=== PATIENT | female | born 1985 | race Caucasian/White ===

== ENCOUNTER 2019-01-11 17:03 | Inpatient (IN) | payer OTHER ==
[2019-01-11 17:53] VITALS: BMI 29.9
--- NOTE | 2019-01-11 20:50 | HP ---
CIWA Score - Admission Criteria OASAS Guidelines: Admission for Medically Managed Detox: Requires at least one of the followin. CIWA greater than 12 2. Seizures within the past 24 hours 3. Delirium tremens within the past 24 hours 4. Hallucinations within the past 24 hours 5. Acute intervention needed for co occurring medical disorder 6. Acute intervention needed for co occurring psychiatric disorder 7. Severe withdrawal that cannot be handled at a lower level of care (continued vomiting, continued diarrhea, abnormal vital signs) requiring intravenous medication and/or fluids 8. Admission ROS S - HPI Chief Complaint: rehab Allergies/Adverse Reactions: Allergies Allergy/AdvReac Type Severity Reaction Status Date / Time penicillin G Allergy Verified 01/11/19 19:52 History of Present Illness: Patient is a 33 yo female with hx of IV heroin, nicotine and alcohol dependence is here seeking detox. Reports was discharged from the residential facility [facility] Nov 2018 d/t relapsing and using heroin and alcohol. Patient is currently linked to [facility] [phone] MMTP 90 mg, last medicate today, dose pending verification. PMHX: seizures d/o last seizure 04/02/18), asthma, bipolar, anxiety . Denies suicidal / homicidal ideation. Exam Limitations: No Limitations - Ebola screening Have you traveled outside of the country in the last 21 days: No (N) Have you had contact with anyone from an Ebola affected area: No Have you been sick,other than usual withdrawal symptoms: No Do you have a fever: No - Review of Systems Constitutional: Changes in sleep, Other (weight gain 20 lbs in past month) EENT: reports: No Symptoms Reported Respiratory: reports: No Symptoms reported Cardiac: reports: No Symptoms Reported GI: reports: No Symptoms Reported : reports: No Symptoms Reported Musculoskeletal: reports: No Symptoms Reported Integumentary: reports: No Symptoms Reported Neuro: reports: See HPI Endocrine: reports: Increased Thirst Hematology: reports: No Symptoms Reported Psychiatric: reports: Orientated x3, Anxious Other Systems: Reviewed and Negative Patient History - Patient Medical History Hx Anemia: No Hx Asthma: Yes Hx Chronic Obstructive Pulmonary Disease (COPD): No Hx Cancer: No Hx Cardiac Disorders: No Hx Congestive Heart Failure: No Hx Hypertension: No Hx Hypercholesterolemia: No Hx Pacemaker: No HX Cerebrovascular Accident: No Hx Seizures: No Hx Dementia: No Hx Diabetes: No Hx Gastrointestinal Disorders: No Hx Liver Disease: Yes (Hep C resolved ) Hx Genitourinary Disorders: No Hx Sexually Transmitted Disorders: No Hx Renal Disease (ESRD): No Hx Thyroid Disease: No Hx Human Immunodeficiency Virus (HIV): No Hx Hepatitis C: No Hx Depression: Yes Hx Suicide Attempt: No Hx Bipolar Disorder: Yes Hx Schizophrenia: No - Patient Surgical History Past Surgical History: Yes Hx Section: Yes ( x2 ) - PPD History Previous Implant?: No Documented Results: Negative w/o proof PPD to be Administered?: Yes - Reproductive History Patient is a Female of Child Bearing Age (11 -55 yrs old): Yes (abormal periods , no period for over a year ) - Smoking Cessation Smoking history: Current every day smoker Have you smoked in the past 12 months: Yes Aproximately how many cigarettes per day: 20 Hx Chewing Tobacco Use: No Initiated information on smoking cessation: Yes 'Breaking Loose' booklet given: 01/11/19 - Substance & Tx. History Hx Alcohol Use: Yes Hx Substance Use: Yes Substance Use Type: Alcohol, Cocaine Hx Substance Use Treatment: Yes ([facility] d/c november 2017) - Substances Abused alcohol Route: Oral Frequency: 3-6 times per week Amount used: 5-6 shot liquor + 2 x 24 oz Age of first use: 15 Date of Last Use: 01/10/19 heroin Route: inhaltion / injection Frequency: Daily Amount used: 1 - 2 bundle Age of first use: 28 Date of Last Use: 01/07/19 Family Disease History - Family Disease History Family History: Denies Admission Physical Exam [facility] - Vital Signs Vital Signs: Vital Signs - 24 hr 01/11/19 17:52 Temperature 97.7 F Pulse Rate 83 Respiratory 18 Rate Blood Pressure 150/70 - Physical General Appearance: Yes: Appropriately Dressed, Obese, Anxious HEENTM: Yes: EOMI, Hearing grossly Normal, Normal ENT Inspection, Normocephalic , Normal Voice, XU, Pharynx Normal, Tm's normal Respiratory: Yes: Chest Non-Tender, Lungs Clear, Normal Breath Sounds, No Respiratory Distress, No Accessory Muscle Use Neck: Yes: Within Normal Limits Breast: Yes: Breast Exam Deferred Cardiology: Yes: Regular Rhythm, Regular Rate Abdominal: Yes: Normal Bowel Sounds, Non Tender, Soft, Protuberent Genitourinary: Yes: Within Normal Limits Back: Yes: Normal Inspection Musculoskeletal: Yes: full range of Motion, Gait Steady, Pelvis Stable Extremities: Yes: Normal Capillary Refill, Normal Inspection, Normal Range of Motion, Non-Tender Neurological: Yes: administrative receptionist II-XII NML intact, Fully Oriented, Alert, Motor Strength 5/5, Depressed Affect Integumentary: Yes: Normal Color, Warm, Track Aldridge (bilateral anticubital fossa , no infection present) Lymphatic: Yes: Within Normal Limits - Diagnostic (1) Opioid dependence on agonist therapy Current Visit: Yes Status: Acute (2) Alcohol dependence Current Visit: Yes Status: Acute (3) Nicotine dependence Current Visit: Yes Status: Acute (4) Seizure disorder Current Visit: Yes Status: Chronic Comment: on karsten (5) Asthma Current Visit: Yes Status: Chronic Qualifiers: Asthma severity: mild Asthma persistence: unspecified Asthma complication type: unspecified Qualified Code(s): J45.909 - Unspecified asthma , uncomplicated BHS Breath Alcohol Content Breath Alcohol Content: 0 Urine Pregancy Test - Result Urine Test Results: Negative- NO Line Present Urine Drug Screen - Results Drug Screen Negative: No Urine Drug Screen Results: OPI-Opiates, MTD-Methadone, FEN-Fentanyl Inpatient Rehab Admission - Rehab Decision to Admit Inpatient rehab admission?: Yes - Initial Determination Are CD services needed?: Yes Free of communicable disease: Yes Not in need of hospitalization: Yes - Rehab Admission Criteria Previous failed treatment: Yes Poor recovery environment: Yes Comorbidities: Yes Lacks judgement: Yes Patient is meeting Inpatient Rehab admission criteria:: Yes
[2019-01-11] MEDS ORDERED: LOPERAMIDE HCL 2 MG CAPSULE PO PRN (21:02)
[2019-01-11] MEDS ORDERED: P-EPHED 60MG/TRIPROLIDI 2.5MG TABLET PO PRN (21:02)
[2019-01-11] MEDS ORDERED: ACETAMINOPHEN 325 MG TABLET (FP) PO PRN (21:02)
[2019-01-11] MEDS ORDERED: guaiFENesin/D-METHORPHAN HB 10 ML UNIT-DOSE CUPS PO PRN (21:02)
[2019-01-11] MEDS ORDERED: MAGNESIUM CITRATE 300 ML BOTTLE PO PRN (21:02)
[2019-01-11] MEDS ORDERED: IBUPROFEN 400 MG TABLET (FP) PO PRN (21:02)
[2019-01-11] MEDS ORDERED: MENTHOL/PHENOL 1 EACH UD MM PRN (21:02)
[2019-01-11] MEDS ORDERED: cloNIDine HCL 0.1 MG TABLET PO ONE (21:10)
[2019-01-11 23:19] LABS: URINE APPEARANCE CLEAR; URINE BILIRUBIN NEGATIVE (<2.0 mg/dL); URINE COLOR YELLOW; URINE GLUCOSE (UA) NEGATIVE (NEGATIVE); URINE KETONE NEGATIVE (NEGATIVE); URINE LEUK ESTERASE 1+ (NEGATIVE); URINE NITRITE NEGATIVE (NEGATIVE); URINE PROTEIN NEGATIVE (NEGATIVE)
[2019-01-11 23:26] LABS: EPI CELLS RARE /HPF (FEW); URINE MUCUS FEW
[2019-01-12] MEDS: THIAMINE HCL 100 MG TABLET (FP) PO SCH ×2 (00:03→21:37)
[2019-01-12] MEDS: GABAPENTIN 100 MG CAPSULE (FP) PO SCH ×4 (00:04→21:38)
[2019-01-12] MEDS: levETIRAcetam 500 MG TABLET (FP) PO SCH ×3 (00:04→21:38)
[2019-01-12] MEDS ORDERED: METHADONE HCL 10 MG TABLET PO SCH (07:45)
[2019-01-12] MEDS ORDERED: METHADONE HCL 40 MG DISPERSABLE TABLET ONE (08:49)
[2019-01-12] MEDS ORDERED: METHADONE HCL 10 MG TABLET ONE (08:49)
[2019-01-12 10:57] LABS: HEMOGLOBIN 12.9 GM/dL (10.7-15.3); MCHC 33.9 g/dl (32.0-36.0); MEAN CELL VOLUME 88.6 fl (80-96); MEAN PLT VOLUME 7.7 fl (7.5-11.1); PLATELET COUNT 310 K/MM3 (134-434); RBC 4.28 M/mm3 (3.60-5.2); WHITE BLOOD COUNT 6.3 K/mm3 (4.0-10.0)
[2019-01-12 11:00] LABS: ALBUMIN 3.4 g/dl (3.4-5.0); ALK PHOS 105 U/L (45-117); ANION GAP 7 MMOL/L (8-16); BILIRUBIN,TOTAL 0.3 mg/dL (0.2-1); BLOOD UREA NITROGEN 13 mg/dL (7-18); CALCIUM 8.4 mg/dL (8.5-10.1); CHLORIDE 106 mmol/L (98-107); CO2 29 mmol/L (21-32); CREATININE 0.8 mg/dL (0.55-1.3); GLUCOSE,RANDOM 96 mg/dL (74-106); POTASSIUM 4.2 mmol/L (3.5-5.1); SGOT/AST 22 U/L (15-37); SGPT/ALT 39 U/L (13-61); SODIUM 141 mmol/L (136-145); TOT PROT 6.3 g/dl (6.4-8.2)
[2019-01-12] MEDS: METHADONE 80 MG, METHADONE 10 MG PO SCH (12:17)
[2019-01-12] MEDS: NICOTINE 21 MG/24 HOURS TOPICAL PATCH TD SCH (12:17)
[2019-01-12] MEDS: PRENATAL VITAMINS W/ FOLIC ACID TABLET (FP) PO SCH (12:17)
[2019-01-12] MEDS ORDERED: TUBERCULIN PPD 5 TU/0.1ML VIAL ID ONE (12:23)
--- NOTE | 2019-01-12 16:58 | EKG ---
Test Reason : Blood Pressure : / mmHG Vent. Rate : 067 BPM Atrial Rate : 067 BPM P-R Int : 168 ms QRS Dur : 098 ms QT Int : 428 ms P-R-T Axes : 041 070 053 degrees QTc Int : 452 ms NORMAL SINUS RHYTHM NORMAL ECG NO PREVIOUS ECGS AVAILABLE Confirmed by JOHN MANZANARES, REMI ([id number]) on 01/12/2019 4:58:21 PM Referred By: Confirmed By:REMI LOPEZ MD
[2019-01-12] MEDS: MELATONIN 5 MG TABLETS PO PRN (21:38)
[2019-01-13] MEDS ORDERED: METHADONE HCL 10 MG TABLET ONE (03:14)
[2019-01-13] MEDS ORDERED: METHADONE HCL 40 MG DISPERSABLE TABLET ONE (03:15)
[2019-01-13] MEDS: GABAPENTIN 100 MG CAPSULE (FP) PO SCH ×3 (06:42→21:22)
[2019-01-13] MEDS: METHADONE 80 MG, METHADONE 10 MG PO SCH (06:42)
[2019-01-13] MEDS: PRENATAL VITAMINS W/ FOLIC ACID TABLET (FP) PO SCH (10:44)
[2019-01-13] MEDS: levETIRAcetam 500 MG TABLET (FP) PO SCH ×2 (10:44→21:22)
[2019-01-13] MEDS: NICOTINE 21 MG/24 HOURS TOPICAL PATCH TD SCH (10:44)
[2019-01-13] MEDS: NICOTINE POLACRILEX 2 MG GUM BC PRN (10:44)
[2019-01-13] MEDS: THIAMINE HCL 100 MG TABLET (FP) PO SCH (21:22)
[2019-01-13] MEDS: MELATONIN 5 MG TABLETS PO PRN (21:23)
[2019-01-14] MEDS ORDERED: METHADONE HCL 40 MG DISPERSABLE TABLET ONE (04:43)
[2019-01-14] MEDS ORDERED: METHADONE HCL 10 MG TABLET ONE (04:43)
[2019-01-14] MEDS: GABAPENTIN 100 MG CAPSULE (FP) PO SCH ×3 (06:45→22:01)
[2019-01-14] MEDS: METHADONE 80 MG, METHADONE 10 MG PO SCH (07:03)
[2019-01-14] MEDS: NICOTINE 21 MG/24 HOURS TOPICAL PATCH TD SCH (09:48)
[2019-01-14] MEDS: levETIRAcetam 500 MG TABLET (FP) PO SCH ×2 (09:49→22:01)
[2019-01-14] MEDS: PRENATAL VITAMINS W/ FOLIC ACID TABLET (FP) PO SCH (09:49)
--- NOTE | 2019-01-14 12:11 | CONSULT ---
[facility] Psychiatric Consult - Data Date of interview: 01/14/19 Admission source: [facility] Identifying data: First admission to [facility] for this 33 y/o female self-referred for detoxification (alcohol, heroin). Evaluated at [address]. Patient is single, a mother of two, domiciled, unemployed and supported on " panhandling " (as per own account). Substance Abuse History: Discussedwith the patient. Ms Garcia confirmed use of IV heroin and alcohol as described in the current [facility] report as follows : Smoking history: Current every day smoker. Have you smoked in the past 12 months: Yes. Aproximately how many cigarettes per day: 20. Hx Chewing Tobacco Use: No. Initiated information on smoking cessation: Yes. 'Breaking Loose' booklet given: 01/11/19. - Substance & Tx. History. Hx Alcohol Use: Yes. Hx Substance Use: Yes. Substance Use Type: Alcohol, Cocaine. Hx Substance Use Treatment: Yes ([facility] d/c november 2017). - Substances Abused. alcohol. Route: Oral. Frequency: 3-6 times per week. Amount used: 5-6 shot liquor + 2 x 24 oz. Age of first use: 15. Date of Last Use: 01/10/19. heroin. Route: inhaltion / injection. Frequency: Daily. Amount used: 1 - 2 bundle. Age of first use: 28. Date of Last Use: 01/07/19 Medical History: Obesity, seizure disorder (on levetiracetam), bronchialmasthma , hepatitis c and a history of two sections. Psychiatric History: Patient admits to 5-7 psychiatric hospitalizations, mostly at [facility] (also known to [facility] + [facility]). Ms Garcia indicates treatment with paroxetine 20 mg/day + seroquel 50 mg /am - 200 mg/hs. Diagnosed with Bipolar Disorder. Patient just got discharged from the residential facility [facility] in [facility] (violation of regulations against substance use) and she is currently on methadone maintenance (90 mg/day) at [facility] ([place]). No reported history of suicide attempts. Physical/Sexual Abuse/Trauma History: Not discussed in this session. Patient declines. Additional Comment: Urine Drug Screen Results: OPI-Opiates, MTD-Methadone, FEN- Fentanyl. Noted. Mental Status Exam - Mental Status Exam Alert and Oriented to: Time, Place, Person Cognitive Function: Good Patient Appearance: Well Groomed (overweight) Mood: Nervous, Apprehensive Affect: Appropriate, Mood Congruent Patient Behavior: Appropriate, Cooperative Speech Pattern: Clear Voice Loudness: Normal Thought Process: Intact, Goal Oriented Thought Disorder: Not Present Hallucinations: Denies Suicidal Ideation: Denies Homicidal Ideation: Denies Insight/Judgement: Poor Sleep: Poorly, Difficulty falling asleep Appetite: Good Muscle strength/Tone: Normal Gait/Station: Normal Psychiatric Findings - Problem List ([place] 1, 2,3) (1) Opioid dependence on agonist therapy Current Visit: Yes Status: Chronic (2) Alcohol dependence Current Visit: Yes Status: Chronic (3) Nicotine dependence Current Visit: Yes Status: Chronic (4) Substance induced mood disorder Current Visit: Yes Status: Chronic (5) History of bipolar disorder Current Visit: Yes Status: Chronic (6) Insomnia Current Visit: Yes Status: Chronic - Initial Treatment Plan Initial Treatment Plan: Psychoeducation. Sleep hygiene. Support. AA/NA meetings. Medications : paxil 20 mg po daily + seroquel 50 mg po daily + 100 mg po hs. Side effects/benefits of both drugs are discussed with the patient. Ms Garcia has verbally consented to follow this regimen. Observation. Pharmacy claims of 12/27/18 at [facility] : confirmed medications reconciliation.
[2019-01-14] MEDS: PARoxetine HCL 10 MG TABLET PO SCH (12:19)
[2019-01-14] MEDS: THIAMINE HCL 100 MG TABLET (FP) PO SCH (22:01)
[2019-01-14] MEDS: MELATONIN 5 MG TABLETS PO PRN (22:01)
[2019-01-15] MEDS ORDERED: METHADONE HCL 10 MG TABLET ONE (04:11)
[2019-01-15] MEDS ORDERED: METHADONE HCL 40 MG DISPERSABLE TABLET ONE (04:11)
[2019-01-15] MEDS: METHADONE 80 MG, METHADONE 10 MG PO SCH (07:05)
[2019-01-15] MEDS: GABAPENTIN 100 MG CAPSULE (FP) PO SCH ×3 (07:05→21:16)
[2019-01-15] MEDS: levETIRAcetam 500 MG TABLET (FP) PO SCH ×2 (09:38→21:16)
[2019-01-15] MEDS: PRENATAL VITAMINS W/ FOLIC ACID TABLET (FP) PO SCH (09:38)
[2019-01-15] MEDS: NICOTINE 21 MG/24 HOURS TOPICAL PATCH TD SCH (09:38)
[2019-01-15] MEDS: QUEtiapine FUMARATE 50 MG TABLET PO SCH (09:38)
[2019-01-15] MEDS: NICOTINE POLACRILEX 2 MG GUM BC PRN (09:39)
[2019-01-15] MEDS: PARoxetine HCL 10 MG TABLET PO SCH (09:39)
[2019-01-15] MEDS: MELATONIN 5 MG TABLETS PO PRN (21:16)
[2019-01-15] MEDS: THIAMINE HCL 100 MG TABLET (FP) PO SCH (21:17)
[2019-01-16] MEDS ORDERED: METHADONE HCL 10 MG TABLET ONE (03:35)
[2019-01-16] MEDS ORDERED: METHADONE HCL 40 MG DISPERSABLE TABLET ONE (03:35)
[2019-01-16] MEDS: METHADONE 80 MG, METHADONE 10 MG PO SCH (06:00)
[2019-01-16] MEDS: GABAPENTIN 100 MG CAPSULE (FP) PO SCH ×3 (06:00→21:36)
[2019-01-16] MEDS: levETIRAcetam 500 MG TABLET (FP) PO SCH ×2 (10:04→21:36)
[2019-01-16] MEDS: PRENATAL VITAMINS W/ FOLIC ACID TABLET (FP) PO SCH (10:04)
[2019-01-16] MEDS: QUEtiapine FUMARATE 50 MG TABLET PO SCH (10:04)
[2019-01-16] MEDS: PARoxetine HCL 10 MG TABLET PO SCH (10:04)
[2019-01-16] MEDS: NICOTINE 21 MG/24 HOURS TOPICAL PATCH TD SCH (10:05)
[2019-01-16] MEDS: THIAMINE HCL 100 MG TABLET (FP) PO SCH (21:36)
[2019-01-17] MEDS ORDERED: METHADONE HCL 40 MG DISPERSABLE TABLET ONE (04:10)
[2019-01-17] MEDS ORDERED: METHADONE HCL 10 MG TABLET ONE (04:10)
[2019-01-17] MEDS: METHADONE 80 MG, METHADONE 10 MG PO SCH (06:15)
[2019-01-17] MEDS: GABAPENTIN 100 MG CAPSULE (FP) PO SCH ×3 (06:15→21:20)
[2019-01-17] MEDS: PRENATAL VITAMINS W/ FOLIC ACID TABLET (FP) PO SCH (09:52)
[2019-01-17] MEDS: QUEtiapine FUMARATE 50 MG TABLET PO SCH (09:52)
[2019-01-17] MEDS: levETIRAcetam 500 MG TABLET (FP) PO SCH ×2 (09:52→21:20)
[2019-01-17] MEDS: PARoxetine HCL 10 MG TABLET PO SCH (09:52)
[2019-01-17] MEDS: NICOTINE POLACRILEX 2 MG GUM BC PRN (09:52)
[2019-01-17] MEDS: NICOTINE 21 MG/24 HOURS TOPICAL PATCH TD SCH (09:52)
[2019-01-17] MEDS: THIAMINE HCL 100 MG TABLET (FP) PO SCH (21:20)
[2019-01-17] MEDS: QUEtiapine FUMARATE 100 MG TABLET (FP) PO SCH (21:21)
[2019-01-17] MEDS: MELATONIN 5 MG TABLETS PO PRN (21:21)
[2019-01-18] MEDS ORDERED: METHADONE HCL 40 MG DISPERSABLE TABLET ONE (05:05)
[2019-01-18] MEDS ORDERED: METHADONE HCL 10 MG TABLET ONE (05:05)
[2019-01-18] MEDS: METHADONE 80 MG, METHADONE 10 MG PO SCH (06:06)
[2019-01-18] MEDS: GABAPENTIN 100 MG CAPSULE (FP) PO SCH ×3 (06:06→21:17)
[2019-01-18] MEDS: levETIRAcetam 500 MG TABLET (FP) PO SCH ×2 (10:13→21:17)
[2019-01-18] MEDS: NICOTINE 21 MG/24 HOURS TOPICAL PATCH TD SCH (10:13)
[2019-01-18] MEDS: PARoxetine HCL 10 MG TABLET PO SCH (10:13)
[2019-01-18] MEDS: PRENATAL VITAMINS W/ FOLIC ACID TABLET (FP) PO SCH (10:14)
[2019-01-18] MEDS: QUEtiapine FUMARATE 50 MG TABLET PO SCH (10:14)
[2019-01-18] MEDS: NICOTINE POLACRILEX 2 MG GUM BC PRN (10:15)
[2019-01-18] MEDS: THIAMINE HCL 100 MG TABLET (FP) PO SCH (21:16)
[2019-01-18] MEDS: QUEtiapine FUMARATE 100 MG TABLET (FP) PO SCH (21:16)
[2019-01-18] MEDS: MELATONIN 5 MG TABLETS PO PRN (21:17)
[2019-01-19] MEDS ORDERED: METHADONE HCL 40 MG DISPERSABLE TABLET ONE (05:12)
[2019-01-19] MEDS ORDERED: METHADONE HCL 10 MG TABLET ONE (05:12)
[2019-01-19] MEDS: GABAPENTIN 100 MG CAPSULE (FP) PO SCH ×3 (06:05→21:09)
[2019-01-19] MEDS: METHADONE 80 MG, METHADONE 10 MG PO SCH (06:05)
[2019-01-19] MEDS: PRENATAL VITAMINS W/ FOLIC ACID TABLET (FP) PO SCH (10:19)
[2019-01-19] MEDS: QUEtiapine FUMARATE 50 MG TABLET PO SCH (10:19)
[2019-01-19] MEDS: NICOTINE 21 MG/24 HOURS TOPICAL PATCH TD SCH (10:19)
[2019-01-19] MEDS: PARoxetine HCL 10 MG TABLET PO SCH (10:19)
[2019-01-19] MEDS: levETIRAcetam 500 MG TABLET (FP) PO SCH ×2 (10:19→21:09)
[2019-01-19] MEDS: THIAMINE HCL 100 MG TABLET (FP) PO SCH (21:09)
[2019-01-19] MEDS: QUEtiapine FUMARATE 100 MG TABLET (FP) PO SCH (21:09)
[2019-01-19] MEDS: MELATONIN 5 MG TABLETS PO PRN (21:10)
[2019-01-19] MEDS: NICOTINE POLACRILEX 2 MG GUM BC PRN (21:11)
[2019-01-20] MEDS ORDERED: METHADONE HCL 40 MG DISPERSABLE TABLET ONE (04:38)
[2019-01-20] MEDS ORDERED: METHADONE HCL 10 MG TABLET ONE (04:38)
[2019-01-20] MEDS: METHADONE 80 MG, METHADONE 10 MG PO SCH (05:53)
[2019-01-20] MEDS: GABAPENTIN 100 MG CAPSULE (FP) PO SCH ×3 (05:54→23:27)
[2019-01-20] MEDS: MAGNESIUM HYDROX 2400MG/30ML ORAL SUSPENSION 30 ML CUP PO PRN (10:55)
[2019-01-20] MEDS: NICOTINE 21 MG/24 HOURS TOPICAL PATCH TD SCH (10:55)
[2019-01-20] MEDS: levETIRAcetam 500 MG TABLET (FP) PO SCH ×2 (10:56→23:27)
[2019-01-20] MEDS: PARoxetine HCL 10 MG TABLET PO SCH (10:56)
[2019-01-20] MEDS: QUEtiapine FUMARATE 50 MG TABLET PO SCH (10:56)
[2019-01-20] MEDS: PRENATAL VITAMINS W/ FOLIC ACID TABLET (FP) PO SCH (10:56)
[2019-01-20] MEDS: NICOTINE POLACRILEX 2 MG GUM BC PRN (10:58)
[2019-01-20] MEDS: hydrOXYzine PAMOATE 50 MG CAPSULE (FP) PO PRN (23:27)
[2019-01-20] MEDS: MELATONIN 5 MG TABLETS PO PRN (23:27)
[2019-01-20] MEDS: THIAMINE HCL 100 MG TABLET (FP) PO SCH (23:27)
[2019-01-20] MEDS: QUEtiapine FUMARATE 100 MG TABLET (FP) PO SCH (23:27)
[2019-01-21] MEDS ORDERED: METHADONE HCL 10 MG TABLET ONE (05:09)
[2019-01-21] MEDS ORDERED: METHADONE HCL 40 MG DISPERSABLE TABLET ONE (05:09)
[2019-01-21] MEDS: METHADONE 80 MG, METHADONE 10 MG PO SCH (07:07)
[2019-01-21] MEDS: GABAPENTIN 100 MG CAPSULE (FP) PO SCH ×3 (07:09→21:32)
[2019-01-21] MEDS: NICOTINE 21 MG/24 HOURS TOPICAL PATCH TD SCH (09:58)
[2019-01-21] MEDS: PRENATAL VITAMINS W/ FOLIC ACID TABLET (FP) PO SCH (09:59)
[2019-01-21] MEDS: QUEtiapine FUMARATE 50 MG TABLET PO SCH (09:59)
[2019-01-21] MEDS: levETIRAcetam 500 MG TABLET (FP) PO SCH ×2 (10:00→21:31)
[2019-01-21] MEDS: NICOTINE POLACRILEX 2 MG GUM BC PRN (10:00)
[2019-01-21] MEDS: PARoxetine HCL 10 MG TABLET PO SCH (10:58)
[2019-01-21] MEDS: THIAMINE HCL 100 MG TABLET (FP) PO SCH (21:31)
[2019-01-21] MEDS: hydrOXYzine PAMOATE 50 MG CAPSULE (FP) PO PRN (21:32)
[2019-01-21] MEDS: QUEtiapine FUMARATE 100 MG TABLET (FP) PO SCH (21:32)
[2019-01-21] MEDS: MELATONIN 5 MG TABLETS PO PRN (21:32)
[2019-01-22] MEDS ORDERED: METHADONE HCL 40 MG DISPERSABLE TABLET ONE (03:09)
[2019-01-22] MEDS ORDERED: METHADONE HCL 10 MG TABLET ONE (03:09)
[2019-01-22] MEDS: GABAPENTIN 100 MG CAPSULE (FP) PO SCH ×3 (06:19→21:39)
[2019-01-22] MEDS: METHADONE 80 MG, METHADONE 10 MG PO SCH (06:19)
[2019-01-22] MEDS: levETIRAcetam 500 MG TABLET (FP) PO SCH ×2 (09:32→21:39)
[2019-01-22] MEDS: QUEtiapine FUMARATE 50 MG TABLET PO SCH (09:32)
[2019-01-22] MEDS: hydrOXYzine PAMOATE 50 MG CAPSULE (FP) PO PRN (09:32)
[2019-01-22] MEDS: NICOTINE 21 MG/24 HOURS TOPICAL PATCH TD SCH (09:32)
[2019-01-22] MEDS: PRENATAL VITAMINS W/ FOLIC ACID TABLET (FP) PO SCH (09:32)
[2019-01-22] MEDS: PARoxetine HCL 10 MG TABLET PO SCH (09:32)
[2019-01-22] MEDS: MELATONIN 5 MG TABLETS PO PRN (21:39)
[2019-01-22] MEDS: THIAMINE HCL 100 MG TABLET (FP) PO SCH (21:39)
[2019-01-22] MEDS: QUEtiapine FUMARATE 100 MG TABLET (FP) PO SCH (21:39)
[2019-01-23] MEDS ORDERED: METHADONE HCL 40 MG DISPERSABLE TABLET ONE (03:59)
[2019-01-23] MEDS ORDERED: METHADONE HCL 10 MG TABLET ONE (03:59)
[2019-01-23] MEDS: GABAPENTIN 100 MG CAPSULE (FP) PO SCH ×3 (05:59→21:24)
[2019-01-23] MEDS: METHADONE 80 MG, METHADONE 10 MG PO SCH (05:59)
[2019-01-23] MEDS: NICOTINE 21 MG/24 HOURS TOPICAL PATCH TD SCH (10:01)
[2019-01-23] MEDS: levETIRAcetam 500 MG TABLET (FP) PO SCH ×2 (10:01→21:24)
[2019-01-23] MEDS: QUEtiapine FUMARATE 50 MG TABLET PO SCH (10:01)
[2019-01-23] MEDS: PRENATAL VITAMINS W/ FOLIC ACID TABLET (FP) PO SCH (10:01)
[2019-01-23] MEDS: hydrOXYzine PAMOATE 50 MG CAPSULE (FP) PO PRN ×2 (10:01→21:24)
[2019-01-23] MEDS: PARoxetine HCL 10 MG TABLET PO SCH (10:02)
[2019-01-23] MEDS: NICOTINE POLACRILEX 2 MG GUM BC PRN (10:03)
[2019-01-23] MEDS: MAGNESIUM HYDROX 2400MG/30ML ORAL SUSPENSION 30 ML CUP PO PRN (15:32)
[2019-01-23] MEDS: QUEtiapine FUMARATE 100 MG TABLET (FP) PO SCH (21:24)
[2019-01-23] MEDS: MAG HYDROX/AL HYDROX/SIMETH 30 ML UNIT-DOSE CUP PO PRN (21:24)
[2019-01-23] MEDS: MELATONIN 5 MG TABLETS PO PRN (21:24)
[2019-01-23] MEDS: THIAMINE HCL 100 MG TABLET (FP) PO SCH (21:24)
[2019-01-24] MEDS ORDERED: METHADONE HCL 40 MG DISPERSABLE TABLET ONE (04:15)
[2019-01-24] MEDS ORDERED: METHADONE HCL 10 MG TABLET ONE (04:15)
[2019-01-24] MEDS: GABAPENTIN 100 MG CAPSULE (FP) PO SCH ×3 (05:58→21:27)
[2019-01-24] MEDS: METHADONE 80 MG, METHADONE 10 MG PO SCH (05:58)
[2019-01-24] MEDS: PRENATAL VITAMINS W/ FOLIC ACID TABLET (FP) PO SCH (10:38)
[2019-01-24] MEDS: levETIRAcetam 500 MG TABLET (FP) PO SCH ×2 (10:38→21:27)
[2019-01-24] MEDS: QUEtiapine FUMARATE 50 MG TABLET PO SCH (10:38)
[2019-01-24] MEDS: NICOTINE 21 MG/24 HOURS TOPICAL PATCH TD SCH (10:38)
[2019-01-24] MEDS: PARoxetine HCL 10 MG TABLET PO SCH (10:38)
[2019-01-24] MEDS: NICOTINE POLACRILEX 2 MG GUM BC PRN (10:39)
[2019-01-24] MEDS: hydrOXYzine PAMOATE 50 MG CAPSULE (FP) PO PRN (10:39)
[2019-01-24] MEDS: QUEtiapine FUMARATE 100 MG TABLET (FP) PO SCH (21:27)
[2019-01-24] MEDS: THIAMINE HCL 100 MG TABLET (FP) PO SCH (21:27)
[2019-01-24] MEDS: MELATONIN 5 MG TABLETS PO PRN (21:27)
[2019-01-25] MEDS ORDERED: METHADONE HCL 40 MG DISPERSABLE TABLET ONE (04:02)
[2019-01-25] MEDS ORDERED: METHADONE HCL 10 MG TABLET ONE (04:02)
[2019-01-25] MEDS: METHADONE 80 MG, METHADONE 10 MG PO SCH (06:01)
[2019-01-25] MEDS: GABAPENTIN 100 MG CAPSULE (FP) PO SCH ×3 (06:02→21:24)
[2019-01-25] MEDS: levETIRAcetam 500 MG TABLET (FP) PO SCH ×2 (10:06→21:24)
[2019-01-25] MEDS: PARoxetine HCL 10 MG TABLET PO SCH (10:06)
[2019-01-25] MEDS: NICOTINE 21 MG/24 HOURS TOPICAL PATCH TD SCH (10:06)
[2019-01-25] MEDS: QUEtiapine FUMARATE 50 MG TABLET PO SCH (10:06)
[2019-01-25] MEDS: PRENATAL VITAMINS W/ FOLIC ACID TABLET (FP) PO SCH (10:06)
[2019-01-25] MEDS: hydrOXYzine PAMOATE 50 MG CAPSULE (FP) PO PRN (10:07)
[2019-01-25] MEDS: THIAMINE HCL 100 MG TABLET (FP) PO SCH (21:24)
[2019-01-25] MEDS: MELATONIN 5 MG TABLETS PO PRN (21:24)
[2019-01-25] MEDS: QUEtiapine FUMARATE 100 MG TABLET (FP) PO SCH (21:24)
[2019-01-26] MEDS ORDERED: METHADONE HCL 10 MG TABLET ONE (03:17)
[2019-01-26] MEDS ORDERED: METHADONE HCL 40 MG DISPERSABLE TABLET ONE (03:18)
[2019-01-26] MEDS: METHADONE 80 MG, METHADONE 10 MG PO SCH (06:00)
[2019-01-26] MEDS: GABAPENTIN 100 MG CAPSULE (FP) PO SCH ×3 (06:00→21:43)
[2019-01-26] MEDS: levETIRAcetam 500 MG TABLET (FP) PO SCH ×2 (09:57→21:43)
[2019-01-26] MEDS: PRENATAL VITAMINS W/ FOLIC ACID TABLET (FP) PO SCH (09:57)
[2019-01-26] MEDS: hydrOXYzine PAMOATE 50 MG CAPSULE (FP) PO PRN (09:57)
[2019-01-26] MEDS: QUEtiapine FUMARATE 50 MG TABLET PO SCH (09:58)
[2019-01-26] MEDS: PARoxetine HCL 10 MG TABLET PO SCH (09:58)
[2019-01-26] MEDS: NICOTINE 21 MG/24 HOURS TOPICAL PATCH TD SCH (09:58)
[2019-01-26] MEDS: NICOTINE POLACRILEX 2 MG GUM BC PRN (09:58)
[2019-01-26] MEDS: MELATONIN 5 MG TABLETS PO PRN (21:43)
[2019-01-26] MEDS: THIAMINE HCL 100 MG TABLET (FP) PO SCH (21:43)
[2019-01-26] MEDS: QUEtiapine FUMARATE 100 MG TABLET (FP) PO SCH (21:43)
[2019-01-27] MEDS ORDERED: METHADONE HCL 10 MG TABLET ONE (02:43)
[2019-01-27] MEDS ORDERED: METHADONE HCL 40 MG DISPERSABLE TABLET ONE (02:43)
[2019-01-27] MEDS: GABAPENTIN 100 MG CAPSULE (FP) PO SCH ×3 (06:13→21:26)
[2019-01-27] MEDS: METHADONE 80 MG, METHADONE 10 MG PO SCH (06:13)
[2019-01-27] MEDS: hydrOXYzine PAMOATE 50 MG CAPSULE (FP) PO PRN ×2 (10:15→15:29)
[2019-01-27] MEDS: PRENATAL VITAMINS W/ FOLIC ACID TABLET (FP) PO SCH (10:15)
[2019-01-27] MEDS: NICOTINE 21 MG/24 HOURS TOPICAL PATCH TD SCH (10:15)
[2019-01-27] MEDS: PARoxetine HCL 10 MG TABLET PO SCH (10:15)
[2019-01-27] MEDS: QUEtiapine FUMARATE 50 MG TABLET PO SCH (10:15)
[2019-01-27] MEDS: levETIRAcetam 500 MG TABLET (FP) PO SCH ×2 (10:15→21:26)
[2019-01-27] MEDS: MAGNESIUM HYDROX 2400MG/30ML ORAL SUSPENSION 30 ML CUP PO PRN (10:16)
--- NOTE | 2019-01-27 14:49 | PN ---
Psychiatric Progress Note Vital Signs: Vital Signs Period Temp Pulse Resp BP Sys/[place] Pulse Ox Last 24 Hr 98.2 F 83 18-18 94/55 Date of Session: 01/27/19 Chief Complaint:: Follow up HPI: Requested to see patient because of feeling depressed and anxious. She has history of Bipolar Disorder and Polysubstance(alcohol, heroin) abuse admitted to this unit on 01/11/19 for inpatient rehabilitation Current Medications: Active Medications Generic Name Dose Route Start Last Admin Trade Name Freq PRN Reason Stop Dose Admin Acetaminophen 650 mg 01/11/19 21:02 Tylenol - PO Q4H PRN FEVER Al Hydroxide/Mg Hydroxide 30 ml 01/11/19 21:02 01/23/19 21:24 Mylanta Oral Suspension - PO 30 ml Q6H PRN Administration DYSPEPSIA Eucalyptus/Menthol/Phenol/Sorbitol 1 each 01/11/19 21:02 Cepastat Lozenge - MM Q4H PRN SORE THROAT Gabapentin 100 mg 01/11/19 22:00 01/27/19 06:13 Neurontin - PO 100 mg TID MARIEL Administration Guaifenesin 10 ml 01/11/19 21:02 Robitussin Dm - PO Q6H PRN COUGH Hydroxyzine Pamoate 50 mg 01/11/19 21:02 01/27/19 10:15 Vistaril - PO 50 mg Q4H PRN Administration AGITATION Ibuprofen 400 mg 01/11/19 21:02 Motrin - PO Q6H PRN Pain level 4-6 Levetiracetam 1,000 mg 01/11/19 22:00 01/27/19 10:15 Keppra - PO 1,000 mg BID MARIEL Administration Loperamide HCl 4 mg 01/11/19 21:02 Imodium - PO Q6H PRN DIARRHEA Magnesium Citrate 300 ml 01/11/19 21:02 01/24/19 06:00 Citroma - PO 300 ml Q48H PRN Administration CONSTIPATION Magnesium Hydroxide 30 ml 01/11/19 21:02 01/27/19 10:16 Milk Of Magnesia - PO 30 ml DAILY PRN Administration CONSTIPATION Melatonin 5 mg 01/11/19 22:00 01/26/19 21:43 Melatonin PO 5 mg HS PRN Administration INSOMNIA Methadone HCl 80 mg/ Methadone 90 mg 01/25/19 06:00 01/27/19 06:13 HCl 10 mg PO 02/01/19 05:59 90 mg DAILY@0600 MARIEL Administration Nicotine 21 mg 01/12/19 10:00 01/27/19 10:15 Nicoderm Patch - TD 21 mg DAILY MARIEL Administration Nicotine Polacrilex 2 mg 01/11/19 21:02 01/26/19 09:58 Nicorette Gum - BC 2 mg Q2H PRN Administration NICOTINE REPLACEMENT RX Paroxetine HCl 20 mg 01/14/19 12:15 01/27/19 10:15 Paxil - PO 20 mg DAILY MARIEL Administration Multivit/Folic Acid/Iron 1 tab 01/12/19 10:00 01/27/19 10:15 Vitamins (Sjr) - PO 1 tab DAILY MARIEL Administration Pseudoephedrine/Triprolidine 1 combo 01/11/19 21:02 Actifed - PO TID PRN NASAL CONGESTION Quetiapine Fumarate 50 mg 01/15/19 10:00 01/27/19 10:15 Seroquel - PO 50 mg DAILY MARIEL Administration Quetiapine Fumarate 100 mg 01/17/19 22:00 01/26/19 21:43 Seroquel - PO 100 mg HS MARIEL Administration Thiamine HCl 100 mg 01/11/19 22:00 01/26/19 21:43 Vitamin B1 - PO 100 mg HS MARIEL Administration Current Side Effect: No Lab tests ordered: Yes Lab tests reviewed: Yes Provider note:: Consultation note by Dr Mata read and appreciated. Met with patient. She expressed feeling depressed and anxious because she is not yet accepted by a information systems analyst residential program. Ms Patsy Dobbs, patient's counselor told board writer that she made referral to a lot of programs including [facility], [facility], [facility] and [facility]. Besides [facility] that rejected patient, she said she is waiting to her from the other programs. This information was shared with patient though according to Patsy it was already known by patient. Supportive therapy was provided and patient was asked to be patient with the process. She is currently on Paxil 20 mg/day, Seroquel 50 mg/ day and requested that Paxil dosage be increased. She was educated about pharmacology of medications and their appropriate use. She understood that taking increased dose of Paxil will not have any impact on the process of waiting to be accepted to a residential residential program. She was instruted to make good use of Vistaril as needed for her anxiety Total face to face time:: 25 Mental Status Exam - Mental Status Exam Alert and Oriented to: Time, Place, Person Cognitive Function: Fair Patient Appearance: Well Groomed Mood: Anxious Affect: Appropriate Patient Behavior: Cooperative Speech Pattern: Clear Voice Loudness: Normal Thought Process: Intact, Goal Oriented Hallucinations: Denies Suicidal Ideation: Denies Homicidal Ideation: Denies Insight/Judgement: Fair Sleep: Fair Appetite: Good Muscle strength/Tone: Normal Gait/Station: Normal Psychiatric Treatment Plan - Problem List (1) Substance induced mood disorder Current Visit: Yes (2) Alcohol dependence Current Visit: Yes (3) Opioid dependence on agonist therapy Current Visit: Yes (4) Nicotine dependence Current Visit: Yes (5) Asthma Current Visit: Yes Qualifiers: Asthma severity: mild Asthma persistence: unspecified Asthma complication type: unspecified Qualified Code(s): J45.909 - Unspecified asthma , uncomplicated Initial treatment plan: Continue inpatient rehabilitation
[2019-01-27] MEDS: MELATONIN 5 MG TABLETS PO PRN (21:25)
[2019-01-27] MEDS: THIAMINE HCL 100 MG TABLET (FP) PO SCH (21:25)
[2019-01-27] MEDS: QUEtiapine FUMARATE 100 MG TABLET (FP) PO SCH (21:26)
[2019-01-28] MEDS ORDERED: METHADONE HCL 40 MG DISPERSABLE TABLET ONE (04:10)
[2019-01-28] MEDS ORDERED: METHADONE HCL 10 MG TABLET ONE (04:10)
[2019-01-28] MEDS: GABAPENTIN 100 MG CAPSULE (FP) PO SCH ×3 (06:04→21:47)
[2019-01-28] MEDS: METHADONE 80 MG, METHADONE 10 MG PO SCH (06:04)
[2019-01-28] MEDS: NICOTINE 21 MG/24 HOURS TOPICAL PATCH TD SCH (10:30)
[2019-01-28] MEDS: QUEtiapine FUMARATE 50 MG TABLET PO SCH (10:30)
[2019-01-28] MEDS: PARoxetine HCL 10 MG TABLET PO SCH (10:30)
[2019-01-28] MEDS: PRENATAL VITAMINS W/ FOLIC ACID TABLET (FP) PO SCH (10:30)
[2019-01-28] MEDS: levETIRAcetam 500 MG TABLET (FP) PO SCH ×2 (10:31→21:47)
[2019-01-28] MEDS: NICOTINE POLACRILEX 2 MG GUM BC PRN (10:31)
[2019-01-28] MEDS: hydrOXYzine PAMOATE 50 MG CAPSULE (FP) PO PRN (21:46)
[2019-01-28] MEDS: THIAMINE HCL 100 MG TABLET (FP) PO SCH (21:46)
[2019-01-28] MEDS: MELATONIN 5 MG TABLETS PO PRN (21:46)
[2019-01-28] MEDS: QUEtiapine FUMARATE 100 MG TABLET (FP) PO SCH (21:47)
[2019-01-29] MEDS ORDERED: METHADONE HCL 10 MG TABLET ONE (04:03)
[2019-01-29] MEDS ORDERED: METHADONE HCL 40 MG DISPERSABLE TABLET ONE (04:03)
[2019-01-29] MEDS: METHADONE 80 MG, METHADONE 10 MG PO SCH (05:56)
[2019-01-29] MEDS: GABAPENTIN 100 MG CAPSULE (FP) PO SCH ×3 (05:57→22:24)
[2019-01-29] MEDS ORDERED: levETIRAcetam 250 MG TABLET (FP) PO ONE (08:36)
[2019-01-29] MEDS: QUEtiapine FUMARATE 50 MG TABLET PO SCH (10:24)
[2019-01-29] MEDS: PRENATAL VITAMINS W/ FOLIC ACID TABLET (FP) PO SCH (10:24)
[2019-01-29] MEDS: NICOTINE 21 MG/24 HOURS TOPICAL PATCH TD SCH (10:24)
[2019-01-29] MEDS: levETIRAcetam 500 MG TABLET (FP) PO SCH ×2 (10:24→22:24)
[2019-01-29] MEDS: PARoxetine HCL 10 MG TABLET PO SCH (10:25)
[2019-01-29] MEDS: THIAMINE HCL 100 MG TABLET (FP) PO SCH (22:24)
[2019-01-29] MEDS: MELATONIN 5 MG TABLETS PO PRN (22:24)
[2019-01-29] MEDS: QUEtiapine FUMARATE 100 MG TABLET (FP) PO SCH (22:24)
[2019-01-29] MEDS: hydrOXYzine PAMOATE 50 MG CAPSULE (FP) PO PRN (22:25)
[2019-01-30] MEDS ORDERED: METHADONE HCL 40 MG DISPERSABLE TABLET ONE (03:39)
[2019-01-30] MEDS ORDERED: METHADONE HCL 10 MG TABLET ONE (03:39)
[2019-01-30] MEDS: GABAPENTIN 100 MG CAPSULE (FP) PO SCH ×4 (06:18→21:41)
[2019-01-30] MEDS: METHADONE 80 MG, METHADONE 10 MG PO SCH (06:18)
[2019-01-30] MEDS: PRENATAL VITAMINS W/ FOLIC ACID TABLET (FP) PO SCH (10:37)
[2019-01-30] MEDS: NICOTINE 21 MG/24 HOURS TOPICAL PATCH TD SCH (10:37)
[2019-01-30] MEDS: levETIRAcetam 500 MG TABLET (FP) PO SCH ×2 (10:37→21:41)
[2019-01-30] MEDS: QUEtiapine FUMARATE 50 MG TABLET PO SCH (10:37)
[2019-01-30] MEDS: hydrOXYzine PAMOATE 50 MG CAPSULE (FP) PO PRN (10:37)
[2019-01-30] MEDS: PARoxetine HCL 10 MG TABLET PO SCH (10:38)
[2019-01-30] MEDS: NICOTINE POLACRILEX 2 MG GUM BC PRN (10:38)
[2019-01-30] MEDS: THIAMINE HCL 100 MG TABLET (FP) PO SCH (21:40)
[2019-01-30] MEDS: QUEtiapine FUMARATE 100 MG TABLET (FP) PO SCH (21:41)
[2019-01-30] MEDS: MELATONIN 5 MG TABLETS PO PRN (21:41)
[2019-01-31] MEDS ORDERED: METHADONE HCL 10 MG TABLET ONE (04:26)
[2019-01-31] MEDS ORDERED: METHADONE HCL 40 MG DISPERSABLE TABLET ONE (04:26)
[2019-01-31] MEDS: GABAPENTIN 100 MG CAPSULE (FP) PO SCH ×3 (06:15→21:33)
[2019-01-31] MEDS: METHADONE 80 MG, METHADONE 10 MG PO SCH (06:15)
[2019-01-31] MEDS: NICOTINE 21 MG/24 HOURS TOPICAL PATCH TD SCH (10:23)
[2019-01-31] MEDS: QUEtiapine FUMARATE 50 MG TABLET PO SCH (10:23)
[2019-01-31] MEDS: PRENATAL VITAMINS W/ FOLIC ACID TABLET (FP) PO SCH (10:23)
[2019-01-31] MEDS: levETIRAcetam 500 MG TABLET (FP) PO SCH ×2 (10:23→21:33)
[2019-01-31] MEDS: PARoxetine HCL 10 MG TABLET PO SCH (10:24)
[2019-01-31] MEDS: NICOTINE POLACRILEX 2 MG GUM BC PRN ×2 (10:26→15:02)
[2019-01-31] MEDS: hydrOXYzine PAMOATE 50 MG CAPSULE (FP) PO PRN (15:02)
[2019-01-31] MEDS: THIAMINE HCL 100 MG TABLET (FP) PO SCH (21:33)
[2019-01-31] MEDS: MELATONIN 5 MG TABLETS PO PRN (21:33)
[2019-01-31] MEDS: QUEtiapine FUMARATE 100 MG TABLET (FP) PO SCH (21:33)
[2019-02-01] MEDS ORDERED: METHADONE HCL 10 MG TABLET ONE (04:08)
[2019-02-01] MEDS ORDERED: METHADONE HCL 40 MG DISPERSABLE TABLET ONE (04:08)
[2019-02-01] MEDS: METHADONE 80 MG, METHADONE 10 MG PO SCH (06:14)
[2019-02-01] MEDS: GABAPENTIN 100 MG CAPSULE (FP) PO SCH ×3 (06:14→21:23)
[2019-02-01] MEDS: levETIRAcetam 500 MG TABLET (FP) PO SCH ×2 (10:21→21:23)
[2019-02-01] MEDS: PARoxetine HCL 10 MG TABLET PO SCH (10:21)
[2019-02-01] MEDS: NICOTINE 21 MG/24 HOURS TOPICAL PATCH TD SCH (10:21)
[2019-02-01] MEDS: QUEtiapine FUMARATE 50 MG TABLET PO SCH (10:22)
[2019-02-01] MEDS: hydrOXYzine PAMOATE 50 MG CAPSULE (FP) PO PRN ×2 (10:22→21:23)
[2019-02-01] MEDS: PRENATAL VITAMINS W/ FOLIC ACID TABLET (FP) PO SCH (10:22)
[2019-02-01] MEDS: NICOTINE POLACRILEX 2 MG GUM BC PRN (10:24)
[2019-02-01] MEDS: MELATONIN 5 MG TABLETS PO PRN (21:23)
[2019-02-01] MEDS: THIAMINE HCL 100 MG TABLET (FP) PO SCH (21:23)
[2019-02-01] MEDS: QUEtiapine FUMARATE 100 MG TABLET (FP) PO SCH (21:23)
[2019-02-02] MEDS ORDERED: METHADONE HCL 10 MG TABLET ONE (04:01)
[2019-02-02] MEDS ORDERED: METHADONE HCL 40 MG DISPERSABLE TABLET ONE (04:01)
[2019-02-02] MEDS: METHADONE 80 MG, METHADONE 10 MG PO SCH (06:22)
[2019-02-02] MEDS: GABAPENTIN 100 MG CAPSULE (FP) PO SCH ×3 (06:22→21:14)
[2019-02-02] MEDS: NICOTINE 21 MG/24 HOURS TOPICAL PATCH TD SCH (09:59)
[2019-02-02] MEDS: PARoxetine HCL 10 MG TABLET PO SCH (09:59)
[2019-02-02] MEDS: PRENATAL VITAMINS W/ FOLIC ACID TABLET (FP) PO SCH (09:59)
[2019-02-02] MEDS: QUEtiapine FUMARATE 50 MG TABLET PO SCH (09:59)
[2019-02-02] MEDS: levETIRAcetam 500 MG TABLET (FP) PO SCH ×2 (09:59→21:13)
[2019-02-02] MEDS: hydrOXYzine PAMOATE 50 MG CAPSULE (FP) PO PRN ×3 (10:00→21:13)
[2019-02-02] MEDS: NICOTINE POLACRILEX 2 MG GUM BC PRN (10:01)
--- NOTE | 2019-02-02 13:36 | PN ---
S Progress Note (SOAP) Subjective: Patient c/o vaginal discharge. Itchy, yellowish, foul smelling. Started 2-3 days ago, last sexual activity 2 months ago. RPR negative. Also c/o itchy feet after shower here. Objective: Vaginal symptoms indicate yeast infection. Feet-scaly, red. 02/02/19 13:35 Assessment: 1. Vaginal yeast infection 2, Tinea pedis 02/02/19 13:35 Plan: Metrogel vaginal inserts ordered for bedtime and tinactin cream for fee.
[2019-02-02] MEDS: THIAMINE HCL 100 MG TABLET (FP) PO SCH (21:13)
[2019-02-02] MEDS: MELATONIN 5 MG TABLETS PO PRN (21:13)
[2019-02-02] MEDS: TOLNAFTATE 1% CREAM 15 GM TUBE TP SCH (21:14)
[2019-02-02] MEDS: QUEtiapine FUMARATE 100 MG TABLET (FP) PO SCH (21:14)
[2019-02-02] MEDS: metroNIDAZOLE 0.75% VAGINAL GEL 70 GM TUBE VG SCH (21:15)
[2019-02-03] MEDS ORDERED: METHADONE HCL 40 MG DISPERSABLE TABLET ONE (03:49)
[2019-02-03] MEDS ORDERED: METHADONE HCL 10 MG TABLET ONE (03:49)
[2019-02-03] MEDS: METHADONE 80 MG, METHADONE 10 MG PO SCH (06:01)
[2019-02-03] MEDS: GABAPENTIN 100 MG CAPSULE (FP) PO SCH ×3 (06:01→21:11)
[2019-02-03] MEDS: PRENATAL VITAMINS W/ FOLIC ACID TABLET (FP) PO SCH (10:08)
[2019-02-03] MEDS: PARoxetine HCL 10 MG TABLET PO SCH (10:08)
[2019-02-03] MEDS: levETIRAcetam 500 MG TABLET (FP) PO SCH ×2 (10:08→21:11)
[2019-02-03] MEDS: QUEtiapine FUMARATE 50 MG TABLET PO SCH (10:08)
[2019-02-03] MEDS: NICOTINE 21 MG/24 HOURS TOPICAL PATCH TD SCH (10:08)
[2019-02-03] MEDS: hydrOXYzine PAMOATE 50 MG CAPSULE (FP) PO PRN (10:09)
[2019-02-03] MEDS: TOLNAFTATE 1% CREAM 15 GM TUBE TP SCH ×2 (10:11→21:12)
[2019-02-03] MEDS: NICOTINE POLACRILEX 2 MG GUM BC PRN (10:11)
[2019-02-03] MEDS: MAG HYDROX/AL HYDROX/SIMETH 30 ML UNIT-DOSE CUP PO PRN (15:09)
[2019-02-03] MEDS ORDERED: PT OWN MED DRAWER 7, Y5N ONE (20:08)
[2019-02-03] MEDS: metroNIDAZOLE 0.75% VAGINAL GEL 70 GM TUBE VG SCH (21:11)
[2019-02-03] MEDS: MELATONIN 5 MG TABLETS PO PRN (21:11)
[2019-02-03] MEDS: QUEtiapine FUMARATE 100 MG TABLET (FP) PO SCH (21:11)
[2019-02-03] MEDS: THIAMINE HCL 100 MG TABLET (FP) PO SCH (21:38)
[2019-02-04] MEDS ORDERED: METHADONE HCL 10 MG TABLET ONE (03:37)
[2019-02-04] MEDS ORDERED: METHADONE HCL 40 MG DISPERSABLE TABLET ONE (03:37)
[2019-02-04] MEDS: GABAPENTIN 100 MG CAPSULE (FP) PO SCH ×3 (06:19→21:31)
[2019-02-04] MEDS: METHADONE 80 MG, METHADONE 10 MG PO SCH (06:19)
[2019-02-04] MEDS: levETIRAcetam 500 MG TABLET (FP) PO SCH ×2 (09:34→21:32)
[2019-02-04] MEDS: NICOTINE 21 MG/24 HOURS TOPICAL PATCH TD SCH (09:34)
[2019-02-04] MEDS: PARoxetine HCL 10 MG TABLET PO SCH (09:35)
[2019-02-04] MEDS: PRENATAL VITAMINS W/ FOLIC ACID TABLET (FP) PO SCH (09:35)
[2019-02-04] MEDS: QUEtiapine FUMARATE 50 MG TABLET PO SCH (09:35)
[2019-02-04] MEDS: hydrOXYzine PAMOATE 50 MG CAPSULE (FP) PO PRN (09:36)
[2019-02-04] MEDS: NICOTINE POLACRILEX 2 MG GUM BC PRN (09:36)
[2019-02-04] MEDS: TOLNAFTATE 1% CREAM 15 GM TUBE TP SCH ×2 (10:08→21:32)
[2019-02-04] MEDS: THIAMINE HCL 100 MG TABLET (FP) PO SCH (21:31)
[2019-02-04] MEDS: QUEtiapine FUMARATE 100 MG TABLET (FP) PO SCH (21:31)
[2019-02-04] MEDS: MELATONIN 5 MG TABLETS PO PRN (21:31)
[2019-02-04] MEDS: metroNIDAZOLE 0.75% VAGINAL GEL 70 GM TUBE VG SCH (21:32)
[2019-02-05] MEDS ORDERED: METHADONE HCL 40 MG DISPERSABLE TABLET ONE (02:50)
[2019-02-05] MEDS ORDERED: METHADONE HCL 10 MG TABLET ONE (02:50)
[2019-02-05] MEDS: GABAPENTIN 100 MG CAPSULE (FP) PO SCH ×3 (06:12→21:09)
[2019-02-05] MEDS: METHADONE 80 MG, METHADONE 10 MG PO SCH (06:12)
[2019-02-05] MEDS: NICOTINE 21 MG/24 HOURS TOPICAL PATCH TD SCH (09:23)
[2019-02-05] MEDS: PARoxetine HCL 10 MG TABLET PO SCH (09:23)
[2019-02-05] MEDS: TOLNAFTATE 1% CREAM 15 GM TUBE TP SCH ×2 (09:23→21:52)
[2019-02-05] MEDS: PRENATAL VITAMINS W/ FOLIC ACID TABLET (FP) PO SCH (09:23)
[2019-02-05] MEDS: levETIRAcetam 500 MG TABLET (FP) PO SCH ×2 (09:23→21:09)
[2019-02-05] MEDS: QUEtiapine FUMARATE 50 MG TABLET PO SCH (09:23)
[2019-02-05] MEDS: THIAMINE HCL 100 MG TABLET (FP) PO SCH (21:08)
[2019-02-05] MEDS: metroNIDAZOLE 0.75% VAGINAL GEL 70 GM TUBE VG SCH (21:09)
[2019-02-05] MEDS: MELATONIN 5 MG TABLETS PO PRN (21:09)
[2019-02-05] MEDS: QUEtiapine FUMARATE 100 MG TABLET (FP) PO SCH (21:09)
[2019-02-06] MEDS ORDERED: METHADONE HCL 10 MG TABLET ONE (03:56)
[2019-02-06] MEDS ORDERED: METHADONE HCL 40 MG DISPERSABLE TABLET ONE (03:57)
[2019-02-06] MEDS: METHADONE 80 MG, METHADONE 10 MG PO SCH (06:19)
[2019-02-06] MEDS: GABAPENTIN 100 MG CAPSULE (FP) PO SCH ×3 (06:19→21:33)
[2019-02-06] MEDS: hydrOXYzine PAMOATE 50 MG CAPSULE (FP) PO PRN ×2 (10:13→21:33)
[2019-02-06] MEDS: QUEtiapine FUMARATE 50 MG TABLET PO SCH (10:13)
[2019-02-06] MEDS: levETIRAcetam 500 MG TABLET (FP) PO SCH ×2 (10:13→21:33)
[2019-02-06] MEDS: PRENATAL VITAMINS W/ FOLIC ACID TABLET (FP) PO SCH (10:13)
[2019-02-06] MEDS: NICOTINE 21 MG/24 HOURS TOPICAL PATCH TD SCH (10:13)
[2019-02-06] MEDS: PARoxetine HCL 10 MG TABLET PO SCH (10:13)
[2019-02-06] MEDS: TOLNAFTATE 1% CREAM 15 GM TUBE TP SCH ×2 (10:16→21:33)
[2019-02-06] MEDS: NICOTINE POLACRILEX 2 MG GUM BC PRN (10:17)
[2019-02-06] MEDS ORDERED: PT OWN MED DRAWER 7, Y5N ONE (19:34)
[2019-02-06] MEDS: THIAMINE HCL 100 MG TABLET (FP) PO SCH (21:32)
[2019-02-06] MEDS: MELATONIN 5 MG TABLETS PO PRN (21:32)
[2019-02-06] MEDS: QUEtiapine FUMARATE 100 MG TABLET (FP) PO SCH (21:33)
[2019-02-06] MEDS: metroNIDAZOLE 0.75% VAGINAL GEL 70 GM TUBE VG SCH (21:34)
[2019-02-07] MEDS ORDERED: METHADONE HCL 10 MG TABLET ONE (04:02)
[2019-02-07] MEDS ORDERED: METHADONE HCL 40 MG DISPERSABLE TABLET ONE (04:02)
[2019-02-07] MEDS: METHADONE 80 MG, METHADONE 10 MG PO SCH (06:23)
[2019-02-07] MEDS: GABAPENTIN 100 MG CAPSULE (FP) PO SCH ×3 (06:24→21:43)
[2019-02-07 07:01] VITALS: TEMP 98
[2019-02-07] MEDS: NICOTINE 21 MG/24 HOURS TOPICAL PATCH TD SCH (10:24)
[2019-02-07] MEDS: PRENATAL VITAMINS W/ FOLIC ACID TABLET (FP) PO SCH (10:24)
[2019-02-07] MEDS: levETIRAcetam 500 MG TABLET (FP) PO SCH ×2 (10:24→21:42)
[2019-02-07] MEDS: QUEtiapine FUMARATE 50 MG TABLET PO SCH (10:25)
[2019-02-07] MEDS: PARoxetine HCL 10 MG TABLET PO SCH (10:25)
[2019-02-07] MEDS: hydrOXYzine PAMOATE 50 MG CAPSULE (FP) PO PRN (10:27)
[2019-02-07] MEDS: NICOTINE POLACRILEX 2 MG GUM BC PRN (10:28)
[2019-02-07] MEDS: TOLNAFTATE 1% CREAM 15 GM TUBE TP SCH ×2 (10:43→21:43)
--- NOTE | 2019-02-07 10:49 | PN ---
S Progress Note Note: Going to [facility] for residential care. Needs meds to go to [facility]. 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
[2019-02-07] MEDS: MELATONIN 5 MG TABLETS PO PRN (21:42)
[2019-02-07] MEDS: THIAMINE HCL 100 MG TABLET (FP) PO SCH (21:42)
[2019-02-07] MEDS: QUEtiapine FUMARATE 100 MG TABLET (FP) PO SCH (21:43)
[2019-02-08] MEDS ORDERED: METHADONE HCL 40 MG DISPERSABLE TABLET ONE (04:21)
[2019-02-08] MEDS ORDERED: METHADONE HCL 10 MG TABLET ONE (04:21)
[2019-02-08] MEDS: GABAPENTIN 100 MG CAPSULE (FP) PO SCH (06:19)
[2019-02-08] MEDS: METHADONE 80 MG, METHADONE 10 MG PO SCH (06:19)
[2019-02-08 07:02] VITALS: BP 109/69; PULSE 86
[2019-02-08] MEDS ORDERED: PT OWN MED DRAWER 7, Y5N ONE (09:07)
[2019-02-08] MEDS: QUEtiapine FUMARATE 50 MG TABLET PO SCH (09:11)
[2019-02-08] MEDS: levETIRAcetam 500 MG TABLET (FP) PO SCH (09:11)
[2019-02-08] MEDS: PRENATAL VITAMINS W/ FOLIC ACID TABLET (FP) PO SCH (09:11)
[2019-02-08] MEDS: PARoxetine HCL 10 MG TABLET PO SCH (09:11)
[2019-02-08] MEDS: NICOTINE 21 MG/24 HOURS TOPICAL PATCH TD SCH (09:11)
[2019-02-08] MEDS: TOLNAFTATE 1% CREAM 15 GM TUBE TP SCH (09:15)
== END 2019-02-08 09:20 | disposition home or self-care (01) | DRG 772 ==
LOC: YASAS 17:03 → Y3W 21:03
PROVIDERS: ADMIT Neuromusculoskeletal Medicine & OMM; ATTEND Neuromusculoskeletal Medicine & OMM
PROC: HZ42ZZZ Group Counseling for Substance Abuse Treatment, Cognitive-Behavioral (ICD-10-PCS; principal; 2019-01-11)
DX: F10.230 Alcohol dependence with withdrawal, uncomplicated (principal); F11.20 Opioid dependence, uncomplicated; F17.210 Nicotine dependence, cigarettes, uncomplicated; F19.24 Other psychoactive substance dependence with psychoactive substance-induced mood disorder; G40.909 Epilepsy, unspecified, not intractable, without status epilepticus; J45.909 Unspecified asthma, uncomplicated; B37.3 Candidiasis of vulva and vagina; B35.3 Tinea pedis; B18.2 Chronic viral hepatitis C; G47.00 Insomnia, unspecified; E66.9 Obesity, unspecified; Z68.30 Body mass index [BMI] 30.0-30.9, adult; Z88.0 Allergy status to penicillin
CPT/HCPCS: 36415; 80053; 80177; 81003; 81015; 85027; 86593; 93005; 93010; J0735

== ENCOUNTER 2020-07-11 16:03 | Inpatient (IN) | payer OTHER ==
[2020-07-11 16:44] VITALS: BMI 37.1
--- NOTE | 2020-07-11 17:05 | HP ---
CIWA Score - Admission Criteria OASAS Guidelines: Admission for Medically Managed Detox: Requires at least one of the followin. CIWA greater than 12 2. Seizures within the past 24 hours 3. Delirium tremens within the past 24 hours 4. Hallucinations within the past 24 hours 5. Acute intervention needed for co occurring medical disorder 6. Acute intervention needed for co occurring psychiatric disorder 7. Severe withdrawal that cannot be handled at a lower level of care (continued vomiting, continued diarrhea, abnormal vital signs) requiring intravenous medication and/or fluids 8. Admitting History and Physical - Smoking History Smoking history: Current every day smoker Have you smoked in the past 12 months: Yes Aproximately how many cigarettes per day: 20 - Alcohol/Substance Use Hx Alcohol Use: Yes Admission ROS S - HPI Chief Complaint: Seeking admission to Rehab. Allergies/Adverse Reactions: Allergies Allergy/AdvReac Type Severity Reaction Status Date / Time penicillin G Allergy Verified 01/11/19 19:52 History of Present Illness: 34 years old male is seeking admission to Rehab. She was referred from [facility] where she completed 18 months inpatient treatment. She has medical history of asthma, seizures, Hep. C, hyperlipidemia and psych. history of bipolar disorder, depression, anxiety. She denies suicidal ideation at this time. She is unemployed, live alone and denies legal issues. She reports blackouts and history of drug overdose, last incident was 2 weeks ago. Delilah is on Methadone 75mg with [facility]. Dose is yet to be confirmed by the nurse. Exam Limitations: No Limitations - Ebola screening Have you traveled outside of the country in the last 21 days: No Have you had contact with anyone from an Ebola affected area: No Have you been sick,other than usual withdrawal symptoms: No Do you have a fever: No - Review of Systems Constitutional: No Symptoms Reported EENT: reports: No Symptoms Reported Respiratory: reports: No Symptoms reported Cardiac: reports: No Symptoms Reported GI: reports: No Symptoms Reported : reports: No Symptoms Reported Musculoskeletal: reports: No Symptoms Reported Integumentary: reports: No Symptoms Reported Neuro: reports: No Symptoms reported Endocrine: reports: No Symptoms Reported Hematology: reports: No Symptoms Reported Psychiatric: reports: Mood/Affect Appropiate, Orientated x3 Other Systems: Reviewed and Negative Patient History - Patient Medical History Hx Anemia: No Hx Asthma: Yes (Albuterol) Hx Chronic Obstructive Pulmonary Disease (COPD): No Hx Cancer: No Hx Cardiac Disorders: No Hx Congestive Heart Failure: No Hx Hypertension: No Hx Hypercholesterolemia: Yes (Simvastatin) Hx Pacemaker: No HX Cerebrovascular Accident: No Hx Seizures: Yes (drug - related) Hx Dementia: No Hx Diabetes: No Hx Gastrointestinal Disorders: No Hx Liver Disease: Yes (Hep C ) Hx Genitourinary Disorders: No Hx Sexually Transmitted Disorders: No Hx Renal Disease (ESRD): No Hx Thyroid Disease: No Hx Human Immunodeficiency Virus (HIV): No Hx Hepatitis C: Yes (Not treated) Hx Depression: Yes Hx Suicide Attempt: No Hx Bipolar Disorder: Yes Hx Schizophrenia: No - Patient Surgical History Past Surgical History: Yes Hx Neurologic Surgery: No Hx Cataract Extraction: No Hx Cardiac Surgery: No Hx Lung Surgery: No Hx Breast Surgery: No Hx Breast Biopsy: No Hx Abdominal Surgery: No Hx Appendectomy: No Hx Cholecystectomy: No Hx Genitourinary Surgery: No Hx Section: Yes (2007, 2011) Hx Orthopedic Surgery: No Anesthesia Reaction: No - PPD History Previous Implant?: Yes Documented Results: Negative w/proof Implanted On Prior R Admission?: Yes Date: 01/14/19 PPD to be Administered?: Yes - Reproductive History Patient is a Female of Child Bearing Age (11 -55 yrs old): Yes Last Menstrual Period: 04/22/20 LMP comment: On Control - Smoking Cessation Smoking history: Current every day smoker Have you smoked in the past 12 months: Yes Aproximately how many cigarettes per day: 10 Hx Chewing Tobacco Use: No Initiated information on smoking cessation: Yes 'Breaking Loose' booklet given: 07/11/20 - Substance & Tx. History Hx Alcohol Use: No Hx Substance Use: Yes Substance Use Type: Heroin, Prescribed (Methadone 75mg with [facility]) Hx Substance Use Treatment: Yes - Substances abused Heroin Substance route: Inhalation Frequency: 1-3 times last 30 days Amount used: 10 bags Age of first use: 28 Date of last use: 06/27/20 Admission Physical Exam [facility] - Vital Signs Vital Signs: Vital Signs - 24 hr 07/11/20 16:42 Temperature 97.8 F Pulse Rate 94 H Respiratory 18 Rate Blood Pressure 105/62 - Physical General Appearance: Yes: Within Normal Limits HEENTM: Yes: Within Normal Limits Respiratory: Yes: Lungs Clear, Normal Breath Sounds, No Respiratory Distress Neck: Yes: Within Normal Limits Breast: Yes: Breast Exam Deferred Cardiology: Yes: Tachycardia Abdominal: Yes: Normal Bowel Sounds, Soft Genitourinary: Yes: Within Normal Limits Back: Yes: Normal Inspection Musculoskeletal: Yes: Within Normal Limits Extremities: Yes: Within Normal Limits Neurological: Yes: Within Normal Limits Integumentary: Yes: Within Normal Limits Lymphatic: Yes: Within Normal Limits - Diagnostic (1) Hyperlipidemia Current Visit: Yes Status: Chronic Qualifiers: Hyperlipidemia type: unspecified Qualified Code(s): E78.5 - Hyperlipidemia, unspecified (2) Asthma Current Visit: Yes Status: Chronic Qualifiers: Asthma severity: mild Asthma persistence: intermittent Asthma complication type: unspecified Qualified Code(s): J45.20 - Mild intermittent asthma, uncomplicated (3) Nicotine dependence Current Visit: Yes Status: Chronic Qualifiers: Nicotine product type: cigarettes Substance use status: uncomplicated Qualified Code(s): F17.210 - Nicotine dependence, cigarettes, uncomplicated (4) Opioid dependence on agonist therapy Current Visit: Yes Status: Chronic (5) Seizure disorder Current Visit: Yes Status: Chronic Comment: on karsten (6) Hep C w/o coma, chronic Current Visit: Yes Status: Chronic Cleared for Admission [facility] - Detox or Rehab [facility] Level of Care: Observation Bed Claeared for Rehab Admission: Yes Breathalyzer - Breathalyzer Breathalyzer: 0 Urine Drug Screen - Test Device Lot number: [id number] Expiration date: 02/20/22 - Control Is test valid?: No - Results Drug screen NEGATIVE: No Urine drug screen results: MTD-Methadone Inpatient Rehab Admission - Rehab Decision to Admit Inpatient rehab admission?: Yes - Initial Determination Are CD services needed?: No Free of communicable disease: Yes Not in need of hospitalization: Yes - Rehab Admission Criteria Previous failed treatment: Yes Poor recovery environment: Yes Comorbidities: Yes Lacks judgement: No Patient is meeting Inpatient Rehab admission criteria:: Yes
[2020-07-11] MEDS ORDERED: MAGNESIUM CITRATE 300 ML BOTTLE PO PRN (17:26)
[2020-07-11] MEDS ORDERED: guaiFENesin 200 MG/10 ML 10 ML UNIT-DOSE CUPS PO PRN (17:26)
[2020-07-11] MEDS ORDERED: LOPERAMIDE HCL 2 MG CAPSULE PO PRN (17:26)
[2020-07-11] MEDS ORDERED: MAGNESIUM HYDROX 2400MG/30ML ORAL SUSPENSION 30 ML CUP PO PRN (17:26)
[2020-07-11] MEDS ORDERED: MENTHOL/PHENOL 1 EACH UD MM PRN (17:26)
[2020-07-11] MEDS: levETIRAcetam 500 MG TABLET (FP) PO SCH (21:44)
[2020-07-11] MEDS: MAG HYDROX/AL HYDROX/SIMETH 30 ML UNIT-DOSE CUP PO PRN (21:45)
[2020-07-11] MEDS: MELATONIN 5 MG TABLETS PO SCH (22:08)
[2020-07-11] MEDS: THIAMINE HCL 100 MG TABLET (FP) PO SCH (22:08)
[2020-07-12] MEDS ORDERED: PT OWN MED DRAWER 7, Y5N ONE ×2 (08:41→13:08)
[2020-07-12] MEDS: PRENATAL VITAMINS W/ FOLIC ACID TABLET (FP) PO SCH (09:43)
[2020-07-12] MEDS: NICOTINE 14 MG/24 HOURS TOPICAL PATCH TD SCH (09:43)
[2020-07-12] MEDS: levETIRAcetam 500 MG TABLET (FP) PO SCH ×2 (09:43→21:06)
[2020-07-12] MEDS ORDERED: METHADONE HCL 10 MG TABLET PO ONE (10:20)
[2020-07-12] MEDS ORDERED: METHADONE 40 MG, METHADONE 30 MG, METHADONE 5 MG PO ONE (10:30)
--- NOTE | 2020-07-12 10:31 | CONSULT ---
[facility] Psychiatric Consult - Data Date of interview: 07/12/20 Admission source: [facility] Identifying data: Patient is a 34 year old single female, mother of two, unemployed, domiciled, and is financially supported by family, boyfriend, and [employer] benefits. This is one of multiple admissions for patient. Patient admitted to rehab for opioid dependence. Substance Abuse History: Smoking Cessation. Smoking history: Current every day smoker. Have you smoked in the past 12 months: Yes. Aproximately how many cigarettes per day: 10. Hx Chewing Tobacco Use: No. Initiated information on smoking cessation: Yes. 'Breaking Loose' booklet given: 07/11/20. - Substance & Tx. History. Hx Alcohol Use: No. Hx Substance Use: Yes. Substance Use Type: Heroin, Prescribed (Methadone 75mg with [facility]). Hx Substance Use Treatment: Yes. - Substances abused. Heroin. Substance route: Inhalation. Frequency: 1-3 times last 30 days. Amount used: 10 bags. Age of first use: 28. Date of last use: 06/27/20 Medical History: Obesity, seizure disorder (on levetiracetam), bronchialmasthma, hepatitis c and a history of two sections Psychiatric History: Patient's first psychiatric was at 15 years of age due to depressed mood. She saw a [facility] in [place] and was diagnosed with depression and treated with zoloft. At 18 years of age she reports being diagnosed with bipolar disorder by a psychiatrist in [place] although reports using illicit substances at that age. Ms. Garcia reports history of several psychiatric hospitalizations, mainly in [facility] ( [facility], [facility], [facility]), and most recently four years ago at [facility] after stating she was suicidal. States that she was behaving erractically due to taking klonopin and needed to be admitted due to her unstable behavior. Diagnosis of Bipolar disorder. Patient is receiving psychiatric care at [facility] and reports being prescribed abilify 5mg daily + Paxil 30mg daily + Seroquel 100mg daily + Seroquel 300mg HS + Gabapentin 400mg TID + Topamax 50mg BID. No reported history of suicide attempt. At present patient reports stable mood. Physical/Sexual Abuse/Trauma History: Not discussed. Mental Status Exam - Mental Status Exam Alert and Oriented to: Time, Place, Person Cognitive Function: Good Patient Appearance: Well Groomed Mood: Hopeful Affect: Appropriate Patient Behavior: Appropriate, Cooperative Speech Pattern: Appropriate Voice Loudness: Normal Thought Process: Intact, Goal Oriented Hallucinations: Denies Suicidal Ideation: Denies Homicidal Ideation: Denies Insight/Judgement: Poor Sleep: Poorly Appetite: Fair Muscle strength/Tone: Normal Gait/Station: Normal Psychiatric Findings - Problem List ([place] 1, 2,3) (1) Nicotine dependence Current Visit: Yes Status: Chronic Qualifiers: Nicotine product type: cigarettes Substance use status: uncomplicated Qualified Code(s): F17.210 - Nicotine dependence, cigarettes, uncomplicated (2) Opioid dependence on agonist therapy Current Visit: Yes Status: Chronic (3) History of bipolar disorder Current Visit: Yes Status: Chronic (4) Insomnia Current Visit: Yes Status: Chronic - Initial Treatment Plan Initial Treatment Plan: Psychoeducation provided. Detoxification Rehab in progress. [facility] contacted at [phone] and able to speak the pharmacist. As per the Pharmacist patient was prescribed the following medications for thirty days on the following days: Abilify 5mg (06/13/20), Gabapentin 400mg TID + Seroquel 100mg daily + 300mg HS + Topamax (06/18/20) + Paxil 30mg daily ( 07/08/20). Prescriptions were ordered by Dr. Missy Hillman and Dr. Bueno who patient states both work at [employer]. Patient states that the abilify 5mg was added after she requested a decrease in seroquel 400mg. Ms. Garcia is not interested in resuming abilify. Will order Paxil 30mg daily + Gabapentin 400mg TID + Topamax 50mg BID + Seroquel 100mg daily + 300mg HS. Benefits and side effects discussed. Verbal consent given.
[2020-07-12] MEDS ORDERED: METHADONE HCL 40 MG DISPERSABLE TABLET ONE (10:32)
[2020-07-12] MEDS ORDERED: METHADONE HCL 5 MG TABLET ONE (10:32)
[2020-07-12] MEDS ORDERED: METHADONE HCL 10 MG TABLET ONE (10:32)
[2020-07-12] MEDS ORDERED: PARoxetine HCL 30 MG TABLET PO SCH (11:30)
[2020-07-12] MEDS: TOPIRAMATE 25 MG TABLET PO SCH ×2 (11:39→21:07)
[2020-07-12] MEDS: QUEtiapine FUMARATE 100 MG TABLET (FP) PO SCH (11:39)
[2020-07-12] MEDS: PAROXETINE HCL 20 MG, PAROXETINE HCL 10 MG PO SCH (11:39)
[2020-07-12] MEDS: GABAPENTIN 400 MG CAPSULE PO SCH ×2 (13:07→21:06)
[2020-07-12] MEDS: ACETAMINOPHEN 325 MG TABLET (FP) PO PRN ×2 (13:08→19:18)
--- NOTE | 2020-07-12 15:00 | EKG ---
Test Reason : Blood Pressure : / mmHG Vent. Rate : 082 BPM Atrial Rate : 082 BPM P-R Int : 164 ms QRS Dur : 096 ms QT Int : 386 ms P-R-T Axes : 040 057 041 degrees QTc Int : 450 ms NORMAL SINUS RHYTHM NORMAL ECG WHEN COMPARED WITH ECG OF 11-JAN-2019 23:07, NO SIGNIFICANT CHANGE WAS FOUND Confirmed by MARTA HARRIS MD ([id number]) on 07/12/2020 3:00:03 PM Referred By: Confirmed By:MARTA HARRIS MD
[2020-07-12 15:39] LABS: HEMATOCRIT 36.9 % (32.4-45.2); HEMOGLOBIN 12.1 GM/dL (10.7-15.3); MCH 29.5 pg (25.7-33.7); MCHC 32.7 g/dl (32.0-36.0); MEAN CELL VOLUME 90.1 fl (80-96); MEAN PLT VOLUME 8.1 fl (7.5-11.1); PLATELET COUNT 309 K/MM3 (134-434); RBC 4.09 M/mm3 (3.60-5.2); RDW 13.8 % (11.6-15.6); WHITE BLOOD COUNT 9.2 K/mm3 (4.0-10.0)
[2020-07-12 15:55] LABS: ALBUMIN 3.2 g/dl (3.4-5.0); BILIRUBIN,TOTAL 0.2 mg/dL (0.2-1); BLOOD UREA NITROGEN 13.6 mg/dL (7-18); CALCIUM 8.7 mg/dL (8.5-10.1); CREATININE 0.9 mg/dL (0.55-1.3); POTASSIUM 3.9 mmol/L (3.5-5.1); TOT PROT 6.2 g/dl (6.4-8.2)
[2020-07-12 16:02] LABS: EPI CELLS >36 /uL (0-25.1); HYALINE CASTS 8 /uL (0-3.1); URINE APPEARANCE CLOUDY; URINE BACTERIA 2868 /uL (0-1359); URINE BILIRUBIN NEGATIVE (NEGATIVE); URINE COLOR YELLOW; URINE GLUCOSE (UA) NEGATIVE (NEGATIVE); URINE KETONE NEGATIVE (NEGATIVE); URINE LEUK ESTERASE 1+ (NEGATIVE); URINE NITRITE NEGATIVE (NEGATIVE); URINE PROTEIN NEGATIVE (NEGATIVE); URINE RBC 11 /uL (0-23.9); URINE UROBILINOGEN 0.2 mg/dL (0.2-1.0); URINE WBC 129 /uL (0-25.8)
[2020-07-12] MEDS: NICOTINE POLACRILEX 2 MG GUM BUC PRN (19:20)
[2020-07-12] MEDS: MELATONIN 5 MG TABLETS PO SCH (21:06)
[2020-07-12] MEDS: THIAMINE HCL 100 MG TABLET (FP) PO SCH (21:07)
[2020-07-12] MEDS: QUEtiapine FUMARATE 300 MG TABLET PO SCH (21:08)
[2020-07-13] MEDS ORDERED: METHADONE HCL 10 MG TABLET ONE (05:52)
[2020-07-13] MEDS ORDERED: METHADONE HCL 5 MG TABLET ONE (05:52)
[2020-07-13] MEDS ORDERED: METHADONE HCL 40 MG DISPERSABLE TABLET ONE (05:53)
[2020-07-13] MEDS ORDERED: METHADONE HCL 5 MG TABLET PO SCH (06:00)
[2020-07-13] MEDS: METHADONE 40 MG, METHADONE 30 MG, METHADONE 5 MG PO SCH (06:18)
[2020-07-13] MEDS: GABAPENTIN 400 MG CAPSULE PO SCH ×3 (06:18→21:27)
[2020-07-13] MEDS ORDERED: PT OWN MED DRAWER 7, Y5N ONE (07:37)
[2020-07-13] MEDS: ALBUTEROL SO4 HFA INHALER IH PRN ×2 (07:38→11:30)
[2020-07-13] MEDS: ACETAMINOPHEN 325 MG TABLET (FP) PO PRN (09:02)
[2020-07-13] MEDS: NICOTINE POLACRILEX 2 MG GUM BUC PRN (09:04)
[2020-07-13] MEDS: NICOTINE 14 MG/24 HOURS TOPICAL PATCH TD SCH (09:51)
[2020-07-13] MEDS: PRENATAL VITAMINS W/ FOLIC ACID TABLET (FP) PO SCH (09:52)
[2020-07-13] MEDS: QUEtiapine FUMARATE 100 MG TABLET (FP) PO SCH (09:52)
[2020-07-13] MEDS: TOPIRAMATE 25 MG TABLET PO SCH ×2 (09:52→21:27)
[2020-07-13] MEDS: levETIRAcetam 500 MG TABLET (FP) PO SCH ×2 (09:52→21:28)
[2020-07-13] MEDS: PAROXETINE HCL 20 MG, PAROXETINE HCL 10 MG PO SCH (10:31)
[2020-07-13] MEDS: IBUPROFEN 400 MG TABLET (FP) PO PRN ×2 (13:03→21:31)
--- NOTE | 2020-07-13 13:32 | PN ---
S Progress Note Note: toothache Vital Signs Temperature 97.8 F 07/13/20 06:15 Pulse Rate 88 07/13/20 06:15 Respiratory Rate 18 07/13/20 06:15 Blood Pressure 100/62 07/13/20 06:15 O2 Sat by Pulse Oximetry (%) 99 07/13/20 06:15 anbesom oral gel prn q 6hrs close monitoring
[2020-07-13] MEDS: BENZOCAINE 20 % GEL TUBE MM PRN ×2 (14:33→21:30)
[2020-07-13] MEDS: QUEtiapine FUMARATE 300 MG TABLET PO SCH (21:27)
[2020-07-13] MEDS: THIAMINE HCL 100 MG TABLET (FP) PO SCH (21:27)
[2020-07-13] MEDS: MELATONIN 5 MG TABLETS PO SCH (21:28)
[2020-07-14] MEDS ORDERED: METHADONE HCL 5 MG TABLET ONE (05:45)
[2020-07-14] MEDS ORDERED: METHADONE HCL 10 MG TABLET ONE (05:45)
[2020-07-14] MEDS ORDERED: METHADONE HCL 40 MG DISPERSABLE TABLET ONE (05:46)
[2020-07-14] MEDS: METHADONE 40 MG, METHADONE 30 MG, METHADONE 5 MG PO SCH (06:03)
[2020-07-14] MEDS: GABAPENTIN 400 MG CAPSULE PO SCH ×3 (06:03→21:15)
[2020-07-14] MEDS ORDERED: PT OWN MED DRAWER 7, Y5N ONE (08:58)
[2020-07-14] MEDS: levETIRAcetam 500 MG TABLET (FP) PO SCH ×2 (09:53→21:15)
[2020-07-14] MEDS: NICOTINE 14 MG/24 HOURS TOPICAL PATCH TD SCH (09:53)
[2020-07-14] MEDS: QUEtiapine FUMARATE 100 MG TABLET (FP) PO SCH (09:54)
[2020-07-14] MEDS: TOPIRAMATE 25 MG TABLET PO SCH ×2 (09:54→21:16)
[2020-07-14] MEDS: PAROXETINE HCL 20 MG, PAROXETINE HCL 10 MG PO SCH (09:55)
[2020-07-14] MEDS: PRENATAL VITAMINS W/ FOLIC ACID TABLET (FP) PO SCH (09:56)
[2020-07-14] MEDS: NICOTINE POLACRILEX 2 MG GUM BUC PRN (09:57)
[2020-07-14] MEDS: ACETAMINOPHEN 325 MG TABLET (FP) PO PRN (12:31)
[2020-07-14] MEDS: IBUPROFEN 400 MG TABLET (FP) PO PRN (18:31)
[2020-07-14] MEDS: THIAMINE HCL 100 MG TABLET (FP) PO SCH (21:16)
[2020-07-14] MEDS: QUEtiapine FUMARATE 300 MG TABLET PO SCH (21:16)
[2020-07-14] MEDS: MELATONIN 5 MG TABLETS PO SCH (21:17)
[2020-07-15] MEDS ORDERED: METHADONE HCL 5 MG TABLET ONE (06:06)
[2020-07-15] MEDS ORDERED: METHADONE HCL 10 MG TABLET ONE (06:07)
[2020-07-15] MEDS ORDERED: METHADONE HCL 40 MG DISPERSABLE TABLET ONE (06:07)
[2020-07-15] MEDS: GABAPENTIN 400 MG CAPSULE PO SCH ×3 (06:08→21:27)
[2020-07-15] MEDS: METHADONE 40 MG, METHADONE 30 MG, METHADONE 5 MG PO SCH (06:08)
[2020-07-15] MEDS: NICOTINE POLACRILEX 2 MG GUM BUC PRN ×2 (06:54→14:11)
[2020-07-15] MEDS ORDERED: PT OWN MED DRAWER 7, Y5N ONE ×2 (08:37→21:26)
[2020-07-15] MEDS: PRENATAL VITAMINS W/ FOLIC ACID TABLET (FP) PO SCH (09:49)
[2020-07-15] MEDS: levETIRAcetam 500 MG TABLET (FP) PO SCH ×2 (09:49→21:27)
[2020-07-15] MEDS: NICOTINE 14 MG/24 HOURS TOPICAL PATCH TD SCH (09:49)
[2020-07-15] MEDS: TOPIRAMATE 25 MG TABLET PO SCH ×2 (09:49→23:14)
[2020-07-15] MEDS: PAROXETINE HCL 20 MG, PAROXETINE HCL 10 MG PO SCH (09:49)
[2020-07-15] MEDS: QUEtiapine FUMARATE 100 MG TABLET (FP) PO SCH (09:50)
[2020-07-15] MEDS: ACETAMINOPHEN 325 MG TABLET (FP) PO PRN ×2 (14:12→21:28)
[2020-07-15] MEDS: THIAMINE HCL 100 MG TABLET (FP) PO SCH (21:26)
[2020-07-15] MEDS: MELATONIN 5 MG TABLETS PO SCH (21:27)
[2020-07-15] MEDS: hydrOXYzine PAMOATE 25 MG CAPSULE (FP) PO PRN (21:27)
[2020-07-15] MEDS: QUEtiapine FUMARATE 300 MG TABLET PO SCH (21:27)
[2020-07-15] MEDS: MAG HYDROX/AL HYDROX/SIMETH 30 ML UNIT-DOSE CUP PO PRN (21:30)
[2020-07-16] MEDS ORDERED: METHADONE HCL 10 MG TABLET ONE (06:29)
[2020-07-16] MEDS ORDERED: METHADONE HCL 40 MG DISPERSABLE TABLET ONE (06:29)
[2020-07-16] MEDS ORDERED: METHADONE HCL 5 MG TABLET ONE (06:29)
[2020-07-16] MEDS: METHADONE 40 MG, METHADONE 30 MG, METHADONE 5 MG PO SCH (06:42)
[2020-07-16] MEDS: GABAPENTIN 400 MG CAPSULE PO SCH ×3 (06:43→21:30)
[2020-07-16] MEDS ORDERED: PT OWN MED DRAWER 7, Y5N ONE ×3 (07:45→18:54)
[2020-07-16] MEDS: levETIRAcetam 500 MG TABLET (FP) PO SCH ×2 (09:48→21:28)
[2020-07-16] MEDS: TOPIRAMATE 25 MG TABLET PO SCH ×2 (09:49→21:29)
[2020-07-16] MEDS: NICOTINE 14 MG/24 HOURS TOPICAL PATCH TD SCH (09:49)
[2020-07-16] MEDS: PAROXETINE HCL 20 MG, PAROXETINE HCL 10 MG PO SCH (09:49)
[2020-07-16] MEDS: QUEtiapine FUMARATE 100 MG TABLET (FP) PO SCH (09:50)
[2020-07-16] MEDS: ACETAMINOPHEN 325 MG TABLET (FP) PO PRN ×2 (09:50→21:34)
[2020-07-16] MEDS: PRENATAL VITAMINS W/ FOLIC ACID TABLET (FP) PO SCH (09:50)
[2020-07-16] MEDS: BENZOCAINE 20 % GEL TUBE MM PRN (09:52)
[2020-07-16] MEDS: NICOTINE POLACRILEX 2 MG GUM BUC PRN (09:53)
--- NOTE | 2020-07-16 13:22 | PN ---
[facility] Progress Note Note: initial glucose is 159,fasting glucose in am
[2020-07-16] MEDS: MELATONIN 5 MG TABLETS PO SCH (21:28)
[2020-07-16] MEDS: QUEtiapine FUMARATE 300 MG TABLET PO SCH (21:29)
[2020-07-16] MEDS: THIAMINE HCL 100 MG TABLET (FP) PO SCH (21:32)
[2020-07-17] MEDS ORDERED: METHADONE HCL 10 MG TABLET ONE (03:22)
[2020-07-17] MEDS ORDERED: METHADONE HCL 5 MG TABLET ONE (03:22)
[2020-07-17] MEDS ORDERED: METHADONE HCL 40 MG DISPERSABLE TABLET ONE (03:22)
[2020-07-17] MEDS: METHADONE 40 MG, METHADONE 30 MG, METHADONE 5 MG PO SCH (06:27)
[2020-07-17] MEDS: GABAPENTIN 400 MG CAPSULE PO SCH ×3 (06:28→21:22)
[2020-07-17] MEDS: levETIRAcetam 500 MG TABLET (FP) PO SCH ×2 (10:14→21:22)
[2020-07-17] MEDS: NICOTINE 14 MG/24 HOURS TOPICAL PATCH TD SCH (10:14)
[2020-07-17] MEDS: QUEtiapine FUMARATE 100 MG TABLET (FP) PO SCH (10:15)
[2020-07-17] MEDS: PAROXETINE HCL 20 MG, PAROXETINE HCL 10 MG PO SCH (10:16)
[2020-07-17] MEDS: TOPIRAMATE 25 MG TABLET PO SCH ×2 (10:16→21:20)
[2020-07-17] MEDS: PRENATAL VITAMINS W/ FOLIC ACID TABLET (FP) PO SCH (10:17)
[2020-07-17] MEDS: P-EPHED 60MG/TRIPROLIDI 2.5MG TABLET PO PRN (18:48)
[2020-07-17] MEDS ORDERED: PT OWN MED DRAWER 7, Y5N ONE ×2 (19:45→21:21)
[2020-07-17] MEDS: ACETAMINOPHEN 325 MG TABLET (FP) PO PRN (21:19)
[2020-07-17] MEDS: MELATONIN 5 MG TABLETS PO SCH (21:19)
[2020-07-17] MEDS: QUEtiapine FUMARATE 300 MG TABLET PO SCH (21:21)
[2020-07-17] MEDS: THIAMINE HCL 100 MG TABLET (FP) PO SCH (21:24)
[2020-07-18] MEDS ORDERED: METHADONE HCL 10 MG TABLET ONE (03:15)
[2020-07-18] MEDS ORDERED: METHADONE HCL 5 MG TABLET ONE (03:15)
[2020-07-18] MEDS ORDERED: METHADONE HCL 40 MG DISPERSABLE TABLET ONE (03:16)
[2020-07-18] MEDS: METHADONE 40 MG, METHADONE 30 MG, METHADONE 5 MG PO SCH (06:18)
[2020-07-18] MEDS: GABAPENTIN 400 MG CAPSULE PO SCH ×3 (06:19→21:53)
[2020-07-18] MEDS: levETIRAcetam 500 MG TABLET (FP) PO SCH ×2 (09:14→21:52)
[2020-07-18] MEDS: NICOTINE 14 MG/24 HOURS TOPICAL PATCH TD SCH (09:15)
[2020-07-18] MEDS: PRENATAL VITAMINS W/ FOLIC ACID TABLET (FP) PO SCH (09:16)
[2020-07-18] MEDS: PAROXETINE HCL 20 MG, PAROXETINE HCL 10 MG PO SCH (09:16)
[2020-07-18] MEDS: QUEtiapine FUMARATE 100 MG TABLET (FP) PO SCH (09:16)
[2020-07-18] MEDS: TOPIRAMATE 25 MG TABLET PO SCH ×2 (09:17→21:56)
[2020-07-18] MEDS: ACETAMINOPHEN 325 MG TABLET (FP) PO PRN ×2 (09:17→21:57)
[2020-07-18] MEDS: NICOTINE POLACRILEX 2 MG GUM BUC PRN (09:17)
[2020-07-18] MEDS: ALBUTEROL SO4 HFA INHALER IH PRN (09:19)
--- NOTE | 2020-07-18 10:07 | PN ---
S Progress Note (SOAP) Subjective: Pt c/o vaginal burning, pain,some foul odor and thin yellow discharge. Denies itching or clumpy white discharge. Pt is irritable stating "it's very uncomfortable". Pt also requesting for fungal foot cream for hx of athletes feet. Objective: 07/18/20 10:07 Laboratory Tests 07/11/20 07/12/20 07/12/20 17:31 11:30 11:30 WBC 9.2 RBC 4.09 Hgb 12.1 Hct 36.9 MCV 90.1 MCH 29.5 MCHC 32.7 RDW 13.8 Plt Count 309 MPV 8.1 Sodium Potassium Chloride Carbon Dioxide Anion Gap BUN Creatinine Est GFR (CKD-EPI)AfAm Est GFR (CKD-EPI)NonAf Random Glucose Fasting Glucose Calcium Total Bilirubin AST ALT Alkaline Phosphatase Total Protein Albumin Urine Color Urine Appearance Urine pH Ur Specific [place] Urine Protein Urine Glucose (UA) Urine Ketones Urine Blood Urine Nitrite Urine Bilirubin Urine Urobilinogen Ur Leukocyte Esterase Urine WBC (Auto) Urine RBC (Auto) Urine Casts (Auto) U Epithel Cells (Auto) Urine Bacteria (Auto) POC Urine HCG, Qual Negative Levetiracetam 30.9 Syphilis Serology 07/12/20 07/12/20 07/12/20 11:30 11:30 11:47 WBC RBC Hgb Hct MCV MCH MCHC RDW Plt Count MPV Sodium 139 Potassium 3.9 Chloride 107 Carbon Dioxide 28 Anion Gap 4 L BUN 13.6 Creatinine 0.9 Est GFR (CKD-EPI)AfAm 98.06 Est GFR (CKD-EPI)NonAf 84.60 Random Glucose 159 H Fasting Glucose Calcium 8.7 Total Bilirubin 0.2 AST 17 ALT 22 Alkaline Phosphatase 94 Total Protein 6.2 L Albumin 3.2 L Urine Color Yellow Urine Appearance Cloudy Urine pH 6.0 Ur Specific [place] 1.020 Urine Protein Negative Urine Glucose (UA) Negative Urine Ketones Negative Urine Blood Negative Urine Nitrite Negative Urine Bilirubin Negative Urine Urobilinogen 0.2 Ur Leukocyte Esterase 1+ H Urine WBC (Auto) 129 Urine RBC (Auto) 11 Urine Casts (Auto) 8 U Epithel Cells (Auto) >36 Urine Bacteria (Auto) 2868 POC Urine HCG, Qual Levetiracetam Syphilis Serology Non-reactive 07/17/20 08:10 WBC RBC Hgb Hct MCV MCH MCHC RDW Plt Count MPV Sodium Potassium Chloride Carbon Dioxide Anion Gap BUN Creatinine Est GFR (CKD-EPI)AfAm Est GFR (CKD-EPI)NonAf Random Glucose Fasting Glucose 132 H Calcium Total Bilirubin AST ALT Alkaline Phosphatase Total Protein Albumin Urine Color Urine Appearance Urine pH Ur Specific [place] Urine Protein Urine Glucose (UA) Urine Ketones Urine Blood Urine Nitrite Urine Bilirubin Urine Urobilinogen Ur Leukocyte Esterase Urine WBC (Auto) Urine RBC (Auto) Urine Casts (Auto) U Epithel Cells (Auto) Urine Bacteria (Auto) POC Urine HCG, Qual Levetiracetam Syphilis Serology UA abnormal Feet:dry skin; no edema Assessment: 07/18/20 10:08 Bacterial Vaginosis Plan: Flagyl 500 mg po BID x 7 days Tinactin cream apply to affected area as directed UC today
[2020-07-18] MEDS: TOLNAFTATE 1% CREAM 15 GM TUBE TP SCH ×2 (12:02→21:58)
[2020-07-18] MEDS: hydrOXYzine PAMOATE 25 MG CAPSULE (FP) PO PRN ×2 (12:04→21:53)
[2020-07-18] MEDS: metroNIDAZOLE 250 MG TABLET PO SCH ×2 (13:08→22:15)
[2020-07-18] MEDS: MELATONIN 5 MG TABLETS PO SCH (21:53)
[2020-07-18] MEDS: QUEtiapine FUMARATE 300 MG TABLET PO SCH (21:53)
[2020-07-18] MEDS ORDERED: PT OWN MED DRAWER 7, Y5N ONE (21:56)
[2020-07-18] MEDS: THIAMINE HCL 100 MG TABLET (FP) PO SCH (22:15)
[2020-07-19] MEDS ORDERED: METHADONE HCL 10 MG TABLET ONE (05:57)
[2020-07-19] MEDS ORDERED: METHADONE HCL 5 MG TABLET ONE (05:57)
[2020-07-19] MEDS ORDERED: METHADONE HCL 40 MG DISPERSABLE TABLET ONE (05:58)
[2020-07-19] MEDS: GABAPENTIN 400 MG CAPSULE PO SCH ×3 (06:03→21:20)
[2020-07-19] MEDS: METHADONE 40 MG, METHADONE 30 MG, METHADONE 5 MG PO SCH (06:03)
[2020-07-19] MEDS ORDERED: LIDOCAINE VISCOUS 2% ORAL/TOP 20 ML UNIT-DOSE CUP MM PRN (09:38)
[2020-07-19] MEDS: ALBUTEROL SO4 HFA INHALER IH PRN (09:41)
[2020-07-19] MEDS: NICOTINE 14 MG/24 HOURS TOPICAL PATCH TD SCH (09:41)
[2020-07-19] MEDS: PRENATAL VITAMINS W/ FOLIC ACID TABLET (FP) PO SCH (09:42)
[2020-07-19] MEDS: QUEtiapine FUMARATE 100 MG TABLET (FP) PO SCH (09:42)
[2020-07-19] MEDS: levETIRAcetam 500 MG TABLET (FP) PO SCH ×2 (09:42→21:20)
[2020-07-19] MEDS: metroNIDAZOLE 250 MG TABLET PO SCH ×2 (09:42→21:23)
[2020-07-19] MEDS: PAROXETINE HCL 20 MG, PAROXETINE HCL 10 MG PO SCH (09:43)
[2020-07-19] MEDS: TOPIRAMATE 25 MG TABLET PO SCH ×2 (09:43→21:20)
[2020-07-19] MEDS: NICOTINE POLACRILEX 2 MG GUM BUC PRN ×3 (09:44→21:24)
[2020-07-19] MEDS: TOLNAFTATE 1% CREAM 15 GM TUBE TP SCH ×2 (09:44→21:20)
[2020-07-19] MEDS: IBUPROFEN 400 MG TABLET (FP) PO PRN ×2 (09:46→21:23)
--- NOTE | 2020-07-19 15:25 | PN ---
[facility] Progress Note Note: Pt c/o pain and discomfort to labia and requesting cream Vital Signs - 24 hr 07/18/20 07/19/20 07/19/20 20:30 06:51 13:58 Temperature 98 F Pulse Rate 92 H Respiratory 18 Rate Blood Pressure 119/72 O2 Sat by Pulse 95 99 99 Oximetry (%) UC pending Monistat Topical Cream apply to affected labia area BID continue Flagyl as directed
[2020-07-19] MEDS: MICONAZOLE NITRATE 14 GM/TUBE TUBE TP SCH ×2 (17:53→21:25)
[2020-07-19] MEDS ORDERED: PT OWN MED DRAWER 7, Y5N ONE ×3 (17:54→21:22)
[2020-07-19] MEDS: QUEtiapine FUMARATE 300 MG TABLET PO SCH (21:20)
[2020-07-19] MEDS: THIAMINE HCL 100 MG TABLET (FP) PO SCH (21:20)
[2020-07-19] MEDS: MELATONIN 5 MG TABLETS PO SCH (21:20)
[2020-07-19] MEDS ORDERED: MICONAZOLE NITRATE 14 GM/TUBE TUBE TP SCH (22:00)
[2020-07-20] MEDS ORDERED: METHADONE HCL 5 MG TABLET ONE (03:39)
[2020-07-20] MEDS ORDERED: METHADONE HCL 40 MG DISPERSABLE TABLET ONE (03:40)
[2020-07-20] MEDS ORDERED: METHADONE HCL 10 MG TABLET ONE (03:40)
[2020-07-20] MEDS: METHADONE 40 MG, METHADONE 30 MG, METHADONE 5 MG PO SCH (06:37)
[2020-07-20] MEDS: GABAPENTIN 400 MG CAPSULE PO SCH ×3 (06:38→21:19)
[2020-07-20] MEDS: IBUPROFEN 400 MG TABLET (FP) PO PRN (06:40)
[2020-07-20] MEDS: NICOTINE POLACRILEX 2 MG GUM BUC PRN ×3 (06:40→13:23)
[2020-07-20] MEDS ORDERED: PT OWN MED DRAWER 7, Y5N ONE ×3 (08:43→21:22)
[2020-07-20] MEDS: PAROXETINE HCL 20 MG, PAROXETINE HCL 10 MG PO SCH (09:57)
[2020-07-20] MEDS: MICONAZOLE NITRATE 14 GM/TUBE TUBE TP SCH ×2 (09:58→21:24)
[2020-07-20] MEDS: metroNIDAZOLE 250 MG TABLET PO SCH ×2 (09:58→21:19)
[2020-07-20] MEDS: levETIRAcetam 500 MG TABLET (FP) PO SCH ×2 (09:58→21:19)
[2020-07-20] MEDS: TOPIRAMATE 25 MG TABLET PO SCH ×2 (09:59→21:24)
[2020-07-20] MEDS: NICOTINE 14 MG/24 HOURS TOPICAL PATCH TD SCH (09:59)
[2020-07-20] MEDS: PRENATAL VITAMINS W/ FOLIC ACID TABLET (FP) PO SCH (09:59)
[2020-07-20] MEDS: QUEtiapine FUMARATE 100 MG TABLET (FP) PO SCH (09:59)
[2020-07-20] MEDS: ALBUTEROL SO4 HFA INHALER IH PRN (10:00)
[2020-07-20] MEDS: TOLNAFTATE 1% CREAM 15 GM TUBE TP SCH ×2 (10:01→21:24)
[2020-07-20] MEDS: P-EPHED 60MG/TRIPROLIDI 2.5MG TABLET PO PRN (10:03)
[2020-07-20] MEDS: QUEtiapine FUMARATE 300 MG TABLET PO SCH (21:19)
[2020-07-20] MEDS: THIAMINE HCL 100 MG TABLET (FP) PO SCH (21:20)
[2020-07-20] MEDS: ACETAMINOPHEN 325 MG TABLET (FP) PO PRN (21:23)
[2020-07-20] MEDS: MELATONIN 5 MG TABLETS PO SCH (21:25)
[2020-07-21] MEDS ORDERED: METHADONE HCL 10 MG TABLET ONE (03:14)
[2020-07-21] MEDS ORDERED: METHADONE HCL 5 MG TABLET ONE (03:14)
[2020-07-21] MEDS ORDERED: METHADONE HCL 40 MG DISPERSABLE TABLET ONE (03:15)
[2020-07-21] MEDS: METHADONE 40 MG, METHADONE 30 MG, METHADONE 5 MG PO SCH (06:24)
[2020-07-21] MEDS: GABAPENTIN 400 MG CAPSULE PO SCH ×3 (06:25→21:39)
[2020-07-21] MEDS ORDERED: PT OWN MED DRAWER 7, Y5N ONE (08:45)
[2020-07-21] MEDS: MICONAZOLE NITRATE 14 GM/TUBE TUBE TP SCH ×2 (10:22→21:41)
[2020-07-21] MEDS: PAROXETINE HCL 20 MG, PAROXETINE HCL 10 MG PO SCH (10:23)
[2020-07-21] MEDS: levETIRAcetam 500 MG TABLET (FP) PO SCH ×2 (10:23→21:40)
[2020-07-21] MEDS: QUEtiapine FUMARATE 100 MG TABLET (FP) PO SCH (10:24)
[2020-07-21] MEDS: TOPIRAMATE 25 MG TABLET PO SCH ×2 (10:24→21:40)
[2020-07-21] MEDS: NICOTINE 14 MG/24 HOURS TOPICAL PATCH TD SCH (10:25)
[2020-07-21] MEDS: metroNIDAZOLE 250 MG TABLET PO SCH ×2 (10:25→21:41)
[2020-07-21] MEDS: PRENATAL VITAMINS W/ FOLIC ACID TABLET (FP) PO SCH (10:26)
[2020-07-21] MEDS: NICOTINE POLACRILEX 2 MG GUM BUC PRN ×3 (10:28→21:43)
[2020-07-21] MEDS: TOLNAFTATE 1% CREAM 15 GM TUBE TP SCH ×2 (10:29→21:42)
[2020-07-21] MEDS: QUEtiapine FUMARATE 300 MG TABLET PO SCH (21:39)
[2020-07-21] MEDS: THIAMINE HCL 100 MG TABLET (FP) PO SCH (21:39)
[2020-07-21] MEDS: hydrOXYzine PAMOATE 25 MG CAPSULE (FP) PO PRN (21:40)
[2020-07-21] MEDS: MELATONIN 5 MG TABLETS PO SCH (21:41)
[2020-07-22] MEDS ORDERED: METHADONE HCL 5 MG TABLET ONE (03:07)
[2020-07-22] MEDS ORDERED: METHADONE HCL 10 MG TABLET ONE (03:07)
[2020-07-22] MEDS ORDERED: METHADONE HCL 40 MG DISPERSABLE TABLET ONE (03:07)
[2020-07-22] MEDS: METHADONE 40 MG, METHADONE 30 MG, METHADONE 5 MG PO SCH (06:34)
[2020-07-22] MEDS: GABAPENTIN 400 MG CAPSULE PO SCH ×3 (06:35→21:26)
[2020-07-22] MEDS ORDERED: PT OWN MED DRAWER 7, Y5N ONE ×3 (08:40→22:35)
[2020-07-22] MEDS ORDERED: COLLOIDAL OATMEAL 1 BAR EACH TP PRN (09:21)
--- NOTE | 2020-07-22 09:51 | PN ---
S Progress Note Note: Vital Signs - 24 hr 07/21/20 07/21/20 07/22/20 14:30 20:50 06:30 Temperature 98.1 F Pulse Rate 85 Respiratory 16 Rate Blood Pressure 104/67 O2 Sat by Pulse 99 99 98 Oximetry (%) Microbiology 07/18/20 13:00 Urine - Urine Clean Catch Urine Culture - Final NO GROWTH OBTAINED Repeat UA today. Lactobacillus Acidophilus 1 tab with meals BID
[2020-07-22] MEDS: NICOTINE 14 MG/24 HOURS TOPICAL PATCH TD SCH (10:12)
[2020-07-22] MEDS: MICONAZOLE NITRATE 14 GM/TUBE TUBE TP SCH ×2 (10:13→21:27)
[2020-07-22] MEDS: LACTOBACILLUS ACIDOPHILUS 1 TABLET PO SCH ×2 (10:13→17:44)
[2020-07-22] MEDS: levETIRAcetam 500 MG TABLET (FP) PO SCH ×2 (10:13→21:26)
[2020-07-22] MEDS: TOLNAFTATE 1% CREAM 15 GM TUBE TP SCH ×2 (10:13→21:27)
[2020-07-22] MEDS: QUEtiapine FUMARATE 100 MG TABLET (FP) PO SCH (10:13)
[2020-07-22] MEDS: PAROXETINE HCL 20 MG, PAROXETINE HCL 10 MG PO SCH (10:14)
[2020-07-22] MEDS: PRENATAL VITAMINS W/ FOLIC ACID TABLET (FP) PO SCH (10:15)
[2020-07-22] MEDS: TOPIRAMATE 25 MG TABLET PO SCH ×2 (10:15→21:25)
[2020-07-22] MEDS: NICOTINE POLACRILEX 2 MG GUM BUC PRN ×3 (10:17→21:28)
[2020-07-22] MEDS: metroNIDAZOLE 250 MG TABLET PO SCH ×2 (10:18→21:26)
[2020-07-22] MEDS: LORATADINE 10 MG TABLET PO SCH (10:37)
[2020-07-22] MEDS: P-EPHED 60MG/TRIPROLIDI 2.5MG TABLET PO PRN (10:40)
[2020-07-22] MEDS: THIAMINE HCL 100 MG TABLET (FP) PO SCH (21:25)
[2020-07-22] MEDS: hydrOXYzine PAMOATE 25 MG CAPSULE (FP) PO PRN (21:26)
[2020-07-22] MEDS: QUEtiapine FUMARATE 300 MG TABLET PO SCH (21:26)
[2020-07-22] MEDS: MELATONIN 5 MG TABLETS PO SCH (21:27)
[2020-07-23] MEDS ORDERED: METHADONE HCL 10 MG TABLET ONE (05:58)
[2020-07-23] MEDS ORDERED: METHADONE HCL 5 MG TABLET ONE (05:58)
[2020-07-23] MEDS ORDERED: METHADONE HCL 40 MG DISPERSABLE TABLET ONE (05:59)
[2020-07-23] MEDS: METHADONE 40 MG, METHADONE 30 MG, METHADONE 5 MG PO SCH (06:08)
[2020-07-23] MEDS: GABAPENTIN 400 MG CAPSULE PO SCH ×3 (06:10→21:28)
[2020-07-23] MEDS: LACTOBACILLUS ACIDOPHILUS 1 TABLET PO SCH ×2 (07:40→18:19)
[2020-07-23] MEDS ORDERED: PT OWN MED DRAWER 7, Y5N ONE ×2 (08:54→13:55)
[2020-07-23] MEDS: levETIRAcetam 500 MG TABLET (FP) PO SCH ×2 (10:15→21:26)
[2020-07-23] MEDS: QUEtiapine FUMARATE 100 MG TABLET (FP) PO SCH (10:15)
[2020-07-23] MEDS: LORATADINE 10 MG TABLET PO SCH (10:16)
[2020-07-23] MEDS: TOPIRAMATE 25 MG TABLET PO SCH ×2 (10:16→21:25)
[2020-07-23] MEDS: metroNIDAZOLE 250 MG TABLET PO SCH ×2 (10:16→21:25)
[2020-07-23] MEDS: PRENATAL VITAMINS W/ FOLIC ACID TABLET (FP) PO SCH (10:16)
[2020-07-23] MEDS: NICOTINE 14 MG/24 HOURS TOPICAL PATCH TD SCH (10:17)
[2020-07-23] MEDS: PAROXETINE HCL 20 MG, PAROXETINE HCL 10 MG PO SCH (10:17)
[2020-07-23] MEDS: MICONAZOLE NITRATE 14 GM/TUBE TUBE TP SCH ×2 (10:18→21:27)
[2020-07-23] MEDS: TOLNAFTATE 1% CREAM 15 GM TUBE TP SCH ×2 (10:20→21:28)
[2020-07-23] MEDS: NICOTINE POLACRILEX 2 MG GUM BUC PRN ×2 (10:21→21:29)
[2020-07-23 17:19] LABS: URINE APPEARANCE CLEAR; URINE BILIRUBIN NEGATIVE (NEGATIVE); URINE COLOR YELLOW; URINE GLUCOSE (UA) NEGATIVE (NEGATIVE); URINE KETONE NEGATIVE (NEGATIVE); URINE LEUK ESTERASE NEGATIVE (NEGATIVE); URINE NITRITE NEGATIVE (NEGATIVE); URINE PROTEIN NEGATIVE (NEGATIVE); URINE UROBILINOGEN 0.2 mg/dL (0.2-1.0)
[2020-07-23] MEDS: THIAMINE HCL 100 MG TABLET (FP) PO SCH (21:25)
[2020-07-23] MEDS: MELATONIN 5 MG TABLETS PO SCH (21:26)
[2020-07-23] MEDS: QUEtiapine FUMARATE 300 MG TABLET PO SCH (21:28)
[2020-07-24] MEDS ORDERED: METHADONE HCL 5 MG TABLET ONE (03:17)
[2020-07-24] MEDS ORDERED: METHADONE HCL 40 MG DISPERSABLE TABLET ONE (03:18)
[2020-07-24] MEDS ORDERED: METHADONE HCL 10 MG TABLET ONE (03:18)
[2020-07-24] MEDS: METHADONE 40 MG, METHADONE 30 MG, METHADONE 5 MG PO SCH (06:27)
[2020-07-24] MEDS: GABAPENTIN 400 MG CAPSULE PO SCH ×3 (06:28→21:37)
[2020-07-24] MEDS: LACTOBACILLUS ACIDOPHILUS 1 TABLET PO SCH ×2 (07:16→17:00)
[2020-07-24] MEDS: NICOTINE 14 MG/24 HOURS TOPICAL PATCH TD SCH (10:00)
[2020-07-24] MEDS: MICONAZOLE NITRATE 14 GM/TUBE TUBE TP SCH ×2 (10:00→21:38)
[2020-07-24] MEDS: QUEtiapine FUMARATE 100 MG TABLET (FP) PO SCH (10:01)
[2020-07-24] MEDS: levETIRAcetam 500 MG TABLET (FP) PO SCH ×2 (10:01→21:37)
[2020-07-24] MEDS: metroNIDAZOLE 250 MG TABLET PO SCH ×2 (10:01→21:36)
[2020-07-24] MEDS: LORATADINE 10 MG TABLET PO SCH (10:02)
[2020-07-24] MEDS: PAROXETINE HCL 20 MG, PAROXETINE HCL 10 MG PO SCH (10:03)
[2020-07-24] MEDS: TOPIRAMATE 25 MG TABLET PO SCH ×2 (10:03→21:35)
[2020-07-24] MEDS: PRENATAL VITAMINS W/ FOLIC ACID TABLET (FP) PO SCH (10:04)
[2020-07-24] MEDS: TOLNAFTATE 1% CREAM 15 GM TUBE TP SCH ×2 (10:04→21:38)
[2020-07-24] MEDS: NICOTINE POLACRILEX 2 MG GUM BUC PRN ×2 (10:05→19:56)
--- NOTE | 2020-07-24 15:58 | PN ---
[facility] Progress Note Note: Repeat UA wnl Laboratory Tests 07/11/20 07/12/20 07/12/20 17:31 11:30 11:30 WBC 9.2 RBC 4.09 Hgb 12.1 Hct 36.9 MCV 90.1 MCH 29.5 MCHC 32.7 RDW 13.8 Plt Count 309 MPV 8.1 Sodium Potassium Chloride Carbon Dioxide Anion Gap BUN Creatinine Est GFR (CKD-EPI)AfAm Est GFR (CKD-EPI)NonAf Random Glucose Fasting Glucose Calcium Total Bilirubin AST ALT Alkaline Phosphatase Total Protein Albumin Urine Color Urine Appearance Urine pH Ur Specific [place] Urine Protein Urine Glucose (UA) Urine Ketones Urine Blood Urine Nitrite Urine Bilirubin Urine Urobilinogen Ur Leukocyte Esterase Urine WBC (Auto) Urine RBC (Auto) Urine Casts (Auto) U Epithel Cells (Auto) Urine Bacteria (Auto) POC Urine HCG, Qual Negative Levetiracetam 30.9 Syphilis Serology 07/12/20 07/12/20 07/12/20 11:30 11:30 11:47 WBC RBC Hgb Hct MCV MCH MCHC RDW Plt Count MPV Sodium 139 Potassium 3.9 Chloride 107 Carbon Dioxide 28 Anion Gap 4 L BUN 13.6 Creatinine 0.9 Est GFR (CKD-EPI)AfAm 98.06 Est GFR (CKD-EPI)NonAf 84.60 Random Glucose 159 H Fasting Glucose Calcium 8.7 Total Bilirubin 0.2 AST 17 ALT 22 Alkaline Phosphatase 94 Total Protein 6.2 L Albumin 3.2 L Urine Color Yellow Urine Appearance Cloudy Urine pH 6.0 Ur Specific [place] 1.020 Urine Protein Negative Urine Glucose (UA) Negative Urine Ketones Negative Urine Blood Negative Urine Nitrite Negative Urine Bilirubin Negative Urine Urobilinogen 0.2 Ur Leukocyte Esterase 1+ H Urine WBC (Auto) 129 Urine RBC (Auto) 11 Urine Casts (Auto) 8 U Epithel Cells (Auto) >36 Urine Bacteria (Auto) 2868 POC Urine HCG, Qual Levetiracetam Syphilis Serology Non-reactive 07/17/20 07/23/20 08:10 08:15 WBC RBC Hgb Hct MCV MCH MCHC RDW Plt Count MPV Sodium Potassium Chloride Carbon Dioxide Anion Gap BUN Creatinine Est GFR (CKD-EPI)AfAm Est GFR (CKD-EPI)NonAf Random Glucose Fasting Glucose 132 H Calcium Total Bilirubin AST ALT Alkaline Phosphatase Total Protein Albumin Urine Color Yellow Urine Appearance Clear Urine pH 6.0 Ur Specific [place] 1.025 Urine Protein Negative Urine Glucose (UA) Negative Urine Ketones Negative Urine Blood Negative Urine Nitrite Negative Urine Bilirubin Negative Urine Urobilinogen 0.2 Ur Leukocyte Esterase Negative Urine WBC (Auto) Urine RBC (Auto) Urine Casts (Auto) U Epithel Cells (Auto) Urine Bacteria (Auto) POC Urine HCG, Qual Levetiracetam Syphilis Serology Microbiology 07/18/20 13:00 Urine - Urine Clean Catch Urine Culture - Final NO GROWTH OBTAINED
[2020-07-24] MEDS ORDERED: PT OWN MED DRAWER 7, Y5N ONE ×2 (19:41→22:19)
[2020-07-24] MEDS: THIAMINE HCL 100 MG TABLET (FP) PO SCH (21:35)
[2020-07-24] MEDS: hydrOXYzine PAMOATE 25 MG CAPSULE (FP) PO PRN (21:37)
[2020-07-24] MEDS: MELATONIN 5 MG TABLETS PO SCH (21:37)
[2020-07-24] MEDS: QUEtiapine FUMARATE 300 MG TABLET PO SCH (21:37)
[2020-07-25] MEDS ORDERED: METHADONE HCL 10 MG TABLET ONE (03:15)
[2020-07-25] MEDS ORDERED: METHADONE HCL 5 MG TABLET ONE (03:15)
[2020-07-25] MEDS ORDERED: METHADONE HCL 40 MG DISPERSABLE TABLET ONE (03:16)
[2020-07-25] MEDS: METHADONE 40 MG, METHADONE 30 MG, METHADONE 5 MG PO SCH (06:19)
[2020-07-25] MEDS: GABAPENTIN 400 MG CAPSULE PO SCH ×3 (06:20→21:29)
[2020-07-25] MEDS: LACTOBACILLUS ACIDOPHILUS 1 TABLET PO SCH ×2 (08:25→18:18)
[2020-07-25] MEDS: TOPIRAMATE 25 MG TABLET PO SCH ×2 (10:25→21:30)
[2020-07-25] MEDS: QUEtiapine FUMARATE 100 MG TABLET (FP) PO SCH (10:25)
[2020-07-25] MEDS: levETIRAcetam 500 MG TABLET (FP) PO SCH ×2 (10:25→21:29)
[2020-07-25] MEDS: PAROXETINE HCL 20 MG, PAROXETINE HCL 10 MG PO SCH (10:26)
[2020-07-25] MEDS: metroNIDAZOLE 250 MG TABLET PO SCH (10:26)
[2020-07-25] MEDS: LORATADINE 10 MG TABLET PO SCH (10:26)
[2020-07-25] MEDS: PRENATAL VITAMINS W/ FOLIC ACID TABLET (FP) PO SCH (10:27)
[2020-07-25] MEDS: NICOTINE 14 MG/24 HOURS TOPICAL PATCH TD SCH (10:27)
[2020-07-25] MEDS: TOLNAFTATE 1% CREAM 15 GM TUBE TP SCH ×2 (10:28→21:30)
[2020-07-25] MEDS: MICONAZOLE NITRATE 14 GM/TUBE TUBE TP SCH ×2 (10:28→21:30)
[2020-07-25] MEDS: NICOTINE POLACRILEX 2 MG GUM BUC PRN ×2 (10:28→13:30)
[2020-07-25] MEDS: ALBUTEROL SO4 HFA INHALER IH PRN (10:29)
[2020-07-25] MEDS: THIAMINE HCL 100 MG TABLET (FP) PO SCH (21:28)
[2020-07-25] MEDS: hydrOXYzine PAMOATE 25 MG CAPSULE (FP) PO PRN (21:29)
[2020-07-25] MEDS: QUEtiapine FUMARATE 300 MG TABLET PO SCH (21:29)
[2020-07-25] MEDS: MELATONIN 5 MG TABLETS PO SCH (21:30)
[2020-07-26] MEDS ORDERED: METHADONE HCL 10 MG TABLET ONE (06:31)
[2020-07-26] MEDS ORDERED: METHADONE HCL 5 MG TABLET ONE (06:31)
[2020-07-26] MEDS ORDERED: METHADONE HCL 40 MG DISPERSABLE TABLET ONE (06:32)
[2020-07-26] MEDS: METHADONE 40 MG, METHADONE 30 MG, METHADONE 5 MG PO SCH (06:33)
[2020-07-26] MEDS: GABAPENTIN 400 MG CAPSULE PO SCH ×3 (06:35→21:23)
[2020-07-26] MEDS: NICOTINE POLACRILEX 2 MG GUM BUC PRN ×2 (06:36→18:13)
[2020-07-26] MEDS: LACTOBACILLUS ACIDOPHILUS 1 TABLET PO SCH ×2 (07:30→17:57)
[2020-07-26] MEDS ORDERED: PT OWN MED DRAWER 7, Y5N ONE ×2 (09:01→19:34)
[2020-07-26] MEDS: NICOTINE 14 MG/24 HOURS TOPICAL PATCH TD SCH (10:08)
[2020-07-26] MEDS: QUEtiapine FUMARATE 100 MG TABLET (FP) PO SCH (10:08)
[2020-07-26] MEDS: MICONAZOLE NITRATE 14 GM/TUBE TUBE TP SCH ×2 (10:08→21:23)
[2020-07-26] MEDS: levETIRAcetam 500 MG TABLET (FP) PO SCH ×2 (10:08→21:22)
[2020-07-26] MEDS: TOPIRAMATE 25 MG TABLET PO SCH ×2 (10:09→21:22)
[2020-07-26] MEDS: PRENATAL VITAMINS W/ FOLIC ACID TABLET (FP) PO SCH (10:09)
[2020-07-26] MEDS: PAROXETINE HCL 20 MG, PAROXETINE HCL 10 MG PO SCH (10:09)
[2020-07-26] MEDS: LORATADINE 10 MG TABLET PO SCH (10:10)
[2020-07-26] MEDS: TOLNAFTATE 1% CREAM 15 GM TUBE TP SCH ×2 (10:11→21:23)
[2020-07-26] MEDS: ACETAMINOPHEN 325 MG TABLET (FP) PO PRN (17:58)
[2020-07-26] MEDS: THIAMINE HCL 100 MG TABLET (FP) PO SCH (21:22)
[2020-07-26] MEDS: MELATONIN 5 MG TABLETS PO SCH (21:23)
[2020-07-26] MEDS: QUEtiapine FUMARATE 300 MG TABLET PO SCH (21:23)
[2020-07-27] MEDS ORDERED: METHADONE HCL 5 MG TABLET ONE (06:06)
[2020-07-27] MEDS ORDERED: METHADONE HCL 10 MG TABLET ONE (06:06)
[2020-07-27] MEDS ORDERED: METHADONE HCL 40 MG DISPERSABLE TABLET ONE (06:07)
[2020-07-27] MEDS: METHADONE 40 MG, METHADONE 30 MG, METHADONE 5 MG PO SCH (06:34)
[2020-07-27] MEDS: GABAPENTIN 400 MG CAPSULE PO SCH ×3 (06:34→21:37)
[2020-07-27] MEDS: LACTOBACILLUS ACIDOPHILUS 1 TABLET PO SCH ×2 (08:30→17:36)
[2020-07-27] MEDS ORDERED: PT OWN MED DRAWER 7, Y5N ONE (09:25)
[2020-07-27] MEDS: NICOTINE 14 MG/24 HOURS TOPICAL PATCH TD SCH (10:24)
[2020-07-27] MEDS: levETIRAcetam 500 MG TABLET (FP) PO SCH ×2 (10:25→21:37)
[2020-07-27] MEDS: QUEtiapine FUMARATE 100 MG TABLET (FP) PO SCH (10:25)
[2020-07-27] MEDS: TOPIRAMATE 25 MG TABLET PO SCH ×2 (10:26→21:40)
[2020-07-27] MEDS: LORATADINE 10 MG TABLET PO SCH (10:26)
[2020-07-27] MEDS: PAROXETINE HCL 20 MG, PAROXETINE HCL 10 MG PO SCH (10:26)
[2020-07-27] MEDS: ALBUTEROL SO4 HFA INHALER IH PRN (10:27)
[2020-07-27] MEDS: PRENATAL VITAMINS W/ FOLIC ACID TABLET (FP) PO SCH (10:27)
[2020-07-27] MEDS: TOLNAFTATE 1% CREAM 15 GM TUBE TP SCH ×2 (10:27→21:40)
[2020-07-27] MEDS: MICONAZOLE NITRATE 14 GM/TUBE TUBE TP SCH ×2 (10:27→21:38)
[2020-07-27] MEDS: NICOTINE POLACRILEX 2 MG GUM BUC PRN ×2 (10:29→13:44)
[2020-07-27] MEDS: THIAMINE HCL 100 MG TABLET (FP) PO SCH (21:36)
[2020-07-27] MEDS: hydrOXYzine PAMOATE 25 MG CAPSULE (FP) PO PRN (21:37)
[2020-07-27] MEDS: QUEtiapine FUMARATE 300 MG TABLET PO SCH (21:37)
[2020-07-27] MEDS: MELATONIN 5 MG TABLETS PO SCH (21:38)
[2020-07-28] MEDS ORDERED: METHADONE HCL 5 MG TABLET ONE (06:09)
[2020-07-28] MEDS ORDERED: METHADONE HCL 10 MG TABLET ONE (06:09)
[2020-07-28] MEDS ORDERED: METHADONE HCL 40 MG DISPERSABLE TABLET ONE (06:10)
[2020-07-28] MEDS: GABAPENTIN 400 MG CAPSULE PO SCH ×3 (06:11→21:14)
[2020-07-28] MEDS: METHADONE 40 MG, METHADONE 30 MG, METHADONE 5 MG PO SCH (06:11)
[2020-07-28] MEDS: LACTOBACILLUS ACIDOPHILUS 1 TABLET PO SCH ×2 (07:06→18:50)
[2020-07-28] MEDS ORDERED: PT OWN MED DRAWER 7, Y5N ONE ×3 (08:43→09:29)
[2020-07-28] MEDS: QUEtiapine FUMARATE 100 MG TABLET (FP) PO SCH (09:23)
[2020-07-28] MEDS: PRENATAL VITAMINS W/ FOLIC ACID TABLET (FP) PO SCH (09:23)
[2020-07-28] MEDS: NICOTINE 14 MG/24 HOURS TOPICAL PATCH TD SCH (09:24)
[2020-07-28] MEDS: TOPIRAMATE 25 MG TABLET PO SCH ×2 (09:24→21:16)
[2020-07-28] MEDS: levETIRAcetam 500 MG TABLET (FP) PO SCH ×2 (09:24→21:14)
[2020-07-28] MEDS: PAROXETINE HCL 20 MG, PAROXETINE HCL 10 MG PO SCH (09:25)
[2020-07-28] MEDS: TOLNAFTATE 1% CREAM 15 GM TUBE TP SCH ×2 (09:25→21:16)
[2020-07-28] MEDS: MICONAZOLE NITRATE 14 GM/TUBE TUBE TP SCH ×2 (09:25→21:15)
[2020-07-28] MEDS: LORATADINE 10 MG TABLET PO SCH (09:27)
[2020-07-28] MEDS: NICOTINE POLACRILEX 2 MG GUM BUC PRN ×3 (09:28→21:16)
[2020-07-28] MEDS: ALBUTEROL SO4 HFA INHALER IH PRN (09:28)
[2020-07-28] MEDS: THIAMINE HCL 100 MG TABLET (FP) PO SCH (21:14)
[2020-07-28] MEDS: QUEtiapine FUMARATE 300 MG TABLET PO SCH (21:14)
[2020-07-28] MEDS: hydrOXYzine PAMOATE 25 MG CAPSULE (FP) PO PRN (21:14)
[2020-07-28] MEDS: MELATONIN 5 MG TABLETS PO SCH (21:15)
[2020-07-29] MEDS ORDERED: METHADONE HCL 10 MG TABLET ONE (06:28)
[2020-07-29] MEDS ORDERED: METHADONE HCL 5 MG TABLET ONE (06:28)
[2020-07-29] MEDS ORDERED: METHADONE HCL 40 MG DISPERSABLE TABLET ONE (06:29)
[2020-07-29] MEDS: METHADONE 40 MG, METHADONE 30 MG, METHADONE 5 MG PO SCH (06:30)
[2020-07-29] MEDS: GABAPENTIN 400 MG CAPSULE PO SCH ×3 (06:30→21:30)
[2020-07-29] MEDS: LACTOBACILLUS ACIDOPHILUS 1 TABLET PO SCH ×2 (08:40→17:07)
[2020-07-29] MEDS: NICOTINE POLACRILEX 2 MG GUM BUC PRN ×3 (08:43→17:08)
[2020-07-29] MEDS ORDERED: PT OWN MED DRAWER 7, Y5N ONE (09:17)
[2020-07-29] MEDS: TOPIRAMATE 25 MG TABLET PO SCH ×2 (10:07→21:29)
[2020-07-29] MEDS: PAROXETINE HCL 20 MG, PAROXETINE HCL 10 MG PO SCH (10:08)
[2020-07-29] MEDS: levETIRAcetam 500 MG TABLET (FP) PO SCH ×2 (10:08→21:29)
[2020-07-29] MEDS: LORATADINE 10 MG TABLET PO SCH (10:09)
[2020-07-29] MEDS: MICONAZOLE NITRATE 14 GM/TUBE TUBE TP SCH ×2 (10:10→21:31)
[2020-07-29] MEDS: NICOTINE 14 MG/24 HOURS TOPICAL PATCH TD SCH (10:10)
[2020-07-29] MEDS: QUEtiapine FUMARATE 100 MG TABLET (FP) PO SCH (10:25)
[2020-07-29] MEDS: TOLNAFTATE 1% CREAM 15 GM TUBE TP SCH ×2 (10:25→21:29)
[2020-07-29] MEDS: PRENATAL VITAMINS W/ FOLIC ACID TABLET (FP) PO SCH (10:25)
[2020-07-29] MEDS: hydrOXYzine PAMOATE 25 MG CAPSULE (FP) PO PRN ×2 (14:25→21:29)
--- NOTE | 2020-07-29 14:33 | PN ---
[facility] Progress Note Note: Patient is scheduled for discharge tomorrow. Scripts for 30 days supply of medications(Paxil 30 mg/day, Gabapentin 400 mg/tid, Topamax 50 mg/bid, Seroquel 100 mg/day & 300 mg/hs) will be electronically transmitted to [facility] [place] [id number]`
[2020-07-29] MEDS: THIAMINE HCL 100 MG TABLET (FP) PO SCH (21:28)
[2020-07-29] MEDS: QUEtiapine FUMARATE 300 MG TABLET PO SCH (21:30)
[2020-07-29] MEDS: MELATONIN 5 MG TABLETS PO SCH (21:31)
[2020-07-30] MEDS ORDERED: METHADONE HCL 5 MG TABLET ONE (03:14)
[2020-07-30] MEDS ORDERED: METHADONE HCL 40 MG DISPERSABLE TABLET ONE (03:14)
[2020-07-30] MEDS ORDERED: METHADONE HCL 10 MG TABLET ONE (03:14)
[2020-07-30] MEDS: METHADONE 40 MG, METHADONE 30 MG, METHADONE 5 MG PO SCH (06:13)
[2020-07-30] MEDS: GABAPENTIN 400 MG CAPSULE PO SCH (06:14)
[2020-07-30] MEDS: NICOTINE POLACRILEX 2 MG GUM BUC PRN (06:18)
[2020-07-30] MEDS: LACTOBACILLUS ACIDOPHILUS 1 TABLET PO SCH (07:04)
[2020-07-30 07:35] VITALS: BP 121/70; PULSE 97; TEMP 97.8
--- NOTE | 2020-07-30 08:44 | DS ---
[facility] Rehab Discharge Summary - [facility] Rehab Discharge Summary Admission Date: 07/11/20 Discharge Date: 07/30/20 - History Present History: Alcohol dependence, MMTP Pertinent Past History: Asthma Seizure disorder HLD Hep c Bipolar Disorder - Discharge Physical Exam Vital Signs: Vital Signs Temperature 97.8 F 07/30/20 07:34 Pulse Rate 97 H 07/30/20 07:34 Respiratory Rate 18 07/30/20 07:34 Blood Pressure 121/70 07/30/20 07:34 O2 Sat by Pulse Oximetry (%) 97 07/30/20 07:34 VSS General;WDWN female, alert o x 3,denies s/h/i Resp: no resp difficulty MSK:Active FROM,all limbs, ambulating with cane, steady gait. no edema Skin:intact Pertinent Admission Physical Exam Findings: Laboratory Tests 07/11/20 07/12/20 07/12/20 17:31 11:30 11:30 WBC 9.2 RBC 4.09 Hgb 12.1 Hct 36.9 MCV 90.1 MCH 29.5 MCHC 32.7 RDW 13.8 Plt Count 309 MPV 8.1 Sodium Potassium Chloride Carbon Dioxide Anion Gap BUN Creatinine Est GFR (CKD-EPI)AfAm Est GFR (CKD-EPI)NonAf Random Glucose Fasting Glucose Calcium Total Bilirubin AST ALT Alkaline Phosphatase Total Protein Albumin Urine Color Urine Appearance Urine pH Ur Specific [place] Urine Protein Urine Glucose (UA) Urine Ketones Urine Blood Urine Nitrite Urine Bilirubin Urine Urobilinogen Ur Leukocyte Esterase Urine WBC (Auto) Urine RBC (Auto) Urine Casts (Auto) U Epithel Cells (Auto) Urine Bacteria (Auto) POC Urine HCG, Qual Negative Levetiracetam 30.9 Syphilis Serology 07/12/20 07/12/20 07/12/20 11:30 11:30 11:47 WBC RBC Hgb Hct MCV MCH MCHC RDW Plt Count MPV Sodium 139 Potassium 3.9 Chloride 107 Carbon Dioxide 28 Anion Gap 4 L BUN 13.6 Creatinine 0.9 Est GFR (CKD-EPI)AfAm 98.06 Est GFR (CKD-EPI)NonAf 84.60 Random Glucose 159 H Fasting Glucose Calcium 8.7 Total Bilirubin 0.2 AST 17 ALT 22 Alkaline Phosphatase 94 Total Protein 6.2 L Albumin 3.2 L Urine Color Yellow Urine Appearance Cloudy Urine pH 6.0 Ur Specific [place] 1.020 Urine Protein Negative Urine Glucose (UA) Negative Urine Ketones Negative Urine Blood Negative Urine Nitrite Negative Urine Bilirubin Negative Urine Urobilinogen 0.2 Ur Leukocyte Esterase 1+ H Urine WBC (Auto) 129 Urine RBC (Auto) 11 Urine Casts (Auto) 8 U Epithel Cells (Auto) >36 Urine Bacteria (Auto) 2868 POC Urine HCG, Qual Levetiracetam Syphilis Serology Non-reactive 07/17/20 07/23/20 08:10 08:15 WBC RBC Hgb Hct MCV MCH MCHC RDW Plt Count MPV Sodium Potassium Chloride Carbon Dioxide Anion Gap BUN Creatinine Est GFR (CKD-EPI)AfAm Est GFR (CKD-EPI)NonAf Random Glucose Fasting Glucose 132 H Calcium Total Bilirubin AST ALT Alkaline Phosphatase Total Protein Albumin Urine Color Yellow Urine Appearance Clear Urine pH 6.0 Ur Specific [place] 1.025 Urine Protein Negative Urine Glucose (UA) Negative Urine Ketones Negative Urine Blood Negative Urine Nitrite Negative Urine Bilirubin Negative Urine Urobilinogen 0.2 Ur Leukocyte Esterase Negative Urine WBC (Auto) Urine RBC (Auto) Urine Casts (Auto) U Epithel Cells (Auto) Urine Bacteria (Auto) POC Urine HCG, Qual Levetiracetam Syphilis Serology - Treatment Discharge Condition: Discharge condition good, Rehabilitated safely, Responded well, Outpatient referral accepted Hospital Course: Refeferred to aftercare to [facility] after completion of rehab stay. - Medication Discharge Medications: Ambulatory Orders Methadone [Dolophine -] 75 mg PO DAILY 01/11/19 levETIRAcetam [Keppra -] 1,000 mg PO BID 30 Days #60 tablet 02/07/19 Albuterol Sulfate Inhaler - [Ventolin HFA Inhaler -] 2 puff PO Q4H PRN 07/13/20 Gabapentin [Neurontin -] 400 mg PO TID 07/13/20 Quetiapine Fumarate [Seroquel] 300 mg PO HS 07/13/20 Gabapentin [Neurontin -] 400 mg PO TID #90 capsule 07/29/20 Paroxetine HCl [Paxil] 30 mg PO DAILY #30 tablet 07/29/20 Quetiapine Fumarate [Seroquel -] 100 mg PO DAILY #30 tablet 07/29/20 Quetiapine Fumarate [Seroquel -] 300 mg PO HS #30 tablet 07/29/20 Topiramate [Topamax -] 50 mg PO BID #120 tablet 07/29/20 - Medication-Assisted Treatment (MAT) Medication-Assisted Treatment (MAT): No - Discharge Instructions Diet, activity, other medical instructions: Diet: Activity: Other medical instructions: - Diagnosis (1) Alcohol dependence Status: Chronic Qualifiers: Substance use status: uncomplicated Qualified Code(s): F10.20 - Alcohol dependence, uncomplicated (2) Asthma Status: Chronic Qualifiers: Asthma severity: unspecified severity Asthma persistence: unspecified Asthma complication type: unspecified Qualified Code(s): J45.909 - Unspecified asthma, uncomplicated (3) Hep C w/o coma, chronic Status: Chronic (4) Hyperlipidemia Status: Chronic Qualifiers: Hyperlipidemia type: unspecified Qualified Code(s): E78.5 - Hyperlipidemia, unspecified (5) Nicotine dependence Status: Chronic Qualifiers: Nicotine product type: cigarettes Substance use status: uncomplicated Qualified Code(s): F17.210 - Nicotine dependence, cigarettes, uncomplicated (6) Seizure disorder Status: Chronic (7) Opioid dependence on agonist therapy Status: Chronic - Follow-up Referral Minutes to complete discharge: 20 - AMA Did Patient Leave Against Medical Advice: No Additional Comments: Pt reports to commercial underwriter that she has all her medications in her property and has no need for new Rx today.
== END 2020-07-30 08:44 | disposition other institution (70) | DRG 772 ==
LOC: YASAS 16:03 → Y3E 18:24
PROVIDERS: ADMIT Allergy & Immunology; ATTEND Allergy & Immunology
PROC: HZ42ZZZ Group Counseling for Substance Abuse Treatment, Cognitive-Behavioral (ICD-10-PCS; principal; 2020-07-11)
DX: F10.20 Alcohol dependence, uncomplicated (principal); F11.20 Opioid dependence, uncomplicated; F17.210 Nicotine dependence, cigarettes, uncomplicated; F31.9 Bipolar disorder, unspecified; F41.9 Anxiety disorder, unspecified; G40.509 Epileptic seizures related to external causes, not intractable, without status epilepticus; J45.20 Mild intermittent asthma, uncomplicated; E78.5 Hyperlipidemia, unspecified; B18.2 Chronic viral hepatitis C; N76.0 Acute vaginitis; B96.89 Other specified bacterial agents as the cause of diseases classified elsewhere; L85.3 Xerosis cutis; R82.90 Unspecified abnormal findings in urine; K08.89 Other specified disorders of teeth and supporting structures; E66.9 Obesity, unspecified; Z68.37 Body mass index [BMI] 37.0-37.9, adult; Z88.0 Allergy status to penicillin
CPT/HCPCS: 36415; 80053; 80177; 81003; 81025; 82947; 85027; 86780; 87086; 93005; 93010